=== PATIENT | male | born 1945 | race Caucasian/White ===

== ENCOUNTER 2019-06-17 02:33 | Emergency (ER) | payer MEDICARE, BC ==
[2019-06-17 03:01] VITALS: BP 141/89; PULSE 99
--- NOTE | 2019-06-17 03:23 | EDM.PDOC ---
ED HPI GENERAL MEDICAL PROBLEM - General Chief Complaint: ENT Problem Stated Complaint: SWOLLEN TONGUE,SORE THROAT Time Seen by Provider: 06/17/19 03:00 Source of Information: Reports: Patient History Limitations: Reports: No Limitations - History of Present Illness INITIAL COMMENTS - FREE TEXT/NARRATIVE: 73 yo presents with concerns of sore throat and back pain Was seen in clinic two days ago for ear pain Started on flonase, loratidine. Since this time has developed sore throat too. Feels his tongue may be larger as well. Laid around on the couch today and noticed a back ache while in bed tonight. No fevers. Increased urination. Treatments SALES SPECIAL AGENT: Reports: Other (see below) Other Treatments SALES SPECIAL AGENT: unknown throat Pain Score (Numeric/FACES): 6 Back Pain Pain Score (Numeric/FACES): 8 - Related Data Allergies Allergy/AdvReac Type Severity Reaction Status Date / Time ampicillin Allergy Cannot Verified 06/17/19 03:18 Remember Home Meds: Home Meds Allopurinol 300 mg PO DAILY 03/02/16 [History] Calcipotriene 1 cm TOP BID 03/02/16 [History] Clobetasol Propionate 1 cm TOP BID 03/02/16 [History] Garlic 1 each PO DAILY 03/02/16 [History] Lisinopril 10 mg PO DAILY 03/02/16 [History] Multivitamin [Multi-Vitamin Daily] 1 each PO DAILY 03/02/16 [History] Ibuprofen [Advil] 400 mg PO DAILY 03/04/16 [History] Finasteride 5 mg PO DAILY 06/17/19 [History] Fluticasone Propionate [Flonase] 1 spray NASBOTH DAILY 06/17/19 [History] Levothyroxine 112 mcg PO DAILY 06/17/19 [History] Loratadine 10 mg PO DAILY 06/17/19 [History] atorvaSTATin Calcium [Atorvastatin Calcium] 20 mg PO DAILY 06/17/19 [History] Past Medical History HEENT History: Reports: Impaired Vision Other HEENT History: wears glasses Cardiovascular History: Reports: Hypertension Gastrointestinal History: Reports: GERD Genitourinary History: Reports: Renal Calculus Musculoskeletal History: Reports: Gout, Other (See Below) Other Musculoskeletal History: right torn rotator cuff Endocrine/Metabolic History: Reports: Hypothyroidism, Obesity/BMI 30+ Dermatologic History: Reports: Psoriasis - Infectious Disease History Infectious Disease History: Reports: Chicken Pox - Past Surgical History HEENT Surgical History: Reports: None Cardiovascular Surgical History: Reports: None GI Surgical History: Reports: Colonoscopy Male Surgical History: Reports: None Endocrine Surgical History: Reports: None Musculoskeletal Surgical History: Reports: None Dermatological Surgical History: Reports: None Social & Family History - Family History HEENT: Reports: Glaucoma ED ROS ENT - Review of Systems Review Of Systems: See Below Constitutional: Reports: No Symptoms HEENT: Reports: Throat Pain Respiratory: Reports: No Symptoms Cardiovascular: Reports: No Symptoms Endocrine: Reports: No Symptoms GI/Abdominal: Reports: No Symptoms : Reports: No Symptoms Musculoskeletal: Reports: Back Pain Neurological: Reports: No Symptoms Psychiatric: Reports: No Symptoms Hematologic/Lymphatic: Reports: No Symptoms ED EXAM, ENT - Physical Exam Exam: See Below Exam Limited By: No Limitations General Appearance: Alert, No Apparent Distress Nose: Normal Inspection Mouth/Throat: Normal Inspection Head: Atraumatic, Normocephalic Neck: Normal Inspection Respiratory/Chest: Lungs Clear Cardiovascular: Regular Rate, Rhythm GI/Abdominal: Non-Tender, No Distention Back: Normal Inspection, CVA Tenderness (R) (mild). No: CVA Tenderness (L) Extremities: Normal Inspection Neurological: Alert, Oriented Psychiatric: Normal Affect, Normal Mood Skin: Warm, Dry Course - Vital Signs Last Recorded V/S: Last Vital Signs Temp 35.8 C 06/17/19 02:58 Pulse 99 06/17/19 02:58 Resp 14 06/17/19 02:58 BP 141/89 H 06/17/19 02:58 Pulse Ox 96 06/17/19 02:58 - Orders/Labs/Meds Labs: Laboratory Tests 06/17/19 Range/Units 03:25 Urine Color Yellow (YELLOW) Urine Appearance Clear (CLEAR) Urine pH 6.0 (5.0-8.0) Ur Specific Siler 1.025 (1.008-1.030) Urine Protein Negative (NEGATIVE) mg/dL Urine Glucose (UA) Normal (NEGATIVE) mg/dL Urine Ketones Negative (NEGATIVE) mg/dL Urine Occult Blood Negative (NEGATIVE) Urine Nitrite Negative (NEGATIVE) Urine Bilirubin Negative (NEGATIVE) Urine Urobilinogen 0.2 (0.2-1.0) EU/dL Ur Leukocyte Esterase Negative (NEGATIVE) Urine RBC 0-5 (0-5) Urine WBC 0-5 (0-5) Ur Epithelial Cells Rare Amorphous Sediment Not seen Urine Bacteria Not seen Urine Mucus Few - Re-Assessments/Exams Free Text/Narrative Re-Assessment/Exam: 73 yo presents with concerns of sore throat, back pain. Seen earlier this week in clinic for ear pain. Oropharyngeal exam unremarkable. Symptoms consistent with viral syndrome. No back pain red flags. Will check urine given frequency and possible R CVA tenderness. 06/17/19 03:22 Free Text/Narrative Re-Assessment/Exam: UA negative Safe for discharge 06/17/19 03:50 Departure - Departure Time of Disposition: 03:51 Disposition: Home, Self-Care 01 Clinical Impression: Sore throat Back pain Qualifiers: Back pain location: low back pain Chronicity: acute Back pain laterality: right Sciatica presence: without sciatica Qualified Code(s): M54.5 - Low back pain - Discharge Information Referrals: Carmen Ghotra MD [Primary Care Provider] - Forms: ED Department Discharge Additional Instructions: We suspect your ear/throat/tongue discomfort may be due to a viral infection You may consider discontinuing the allergy medication if they are not helping and seemingly making your symptoms worse Use tylenol and ibuprofen for you back discomfort.
== END 2019-06-17 04:00 | disposition home or self-care (01) ==
LOC: JP.ED 02:33
DX: M54.5 Low back pain (principal); J02.9 Acute pharyngitis, unspecified; I10 Essential (primary) hypertension; K21.9 Gastro-esophageal reflux disease without esophagitis; E03.9 Hypothyroidism, unspecified; Z88.1 Allergy status to other antibiotic agents; Z79.899 Other long term (current) drug therapy; Z87.442 Personal history of urinary calculi
CPT/HCPCS: 81001; 99282; 99283

== ENCOUNTER 2019-06-19 02:27 | Inpatient (IN) | payer MEDICARE, BC ==
--- NOTE | 2019-06-19 02:59 | EDM.PDOC ---
ED HPI GENERAL MEDICAL PROBLEM - General Chief Complaint: Gastrointestinal Problem Stated Complaint: CANNOT HAVE A BOWEL MOVEMENT Time Seen by Provider: 06/19/19 03:17 Source of Information: Reports: Patient - History of Present Illness INITIAL COMMENTS - FREE TEXT/NARRATIVE: 73 years old male patient presented with a chief complaint of constipation. Patient stated that his last bowel movement was almost 1 week ago. Tonight he had some discomfort and has lower abdomen and wasn't able to fall asleep. Denies any nausea or vomiting. Denies any fever. Denies any urinary symptom. Also complaining of some discomfort of his right flank area. Denies any palpitation. Patient pulse was 160 on arrival and EKG shows A. fib with RVR. The patient does not have a history of A. fib. He doesn't feel any palpitation. Denies any chest pain or shortness breath. Patient was seen yesterday and diagnosis was Boss's palsy and prescribed prednisones that he has not started yet for left-sided facial numbness. Denies any headache or visual changes. Denies any focal weakness or numbness anywhere. Had a CT head shows no acute abnormalities. Right Flank Pain Score (Numeric/FACES): 5 - Related Data Allergies Allergy/AdvReac Type Severity Reaction Status Date / Time ampicillin Allergy Cannot Verified 06/19/19 02:41 Remember Home Meds: Home Meds Allopurinol 300 mg PO DAILY 03/02/16 [History] Calcipotriene 1 cm TOP BID 03/02/16 [History] Clobetasol Propionate 1 cm TOP BID 03/02/16 [History] Garlic 1 each PO DAILY 03/02/16 [History] Lisinopril 10 mg PO DAILY 03/02/16 [History] Multivitamin [Multi-Vitamin Daily] 1 each PO DAILY 03/02/16 [History] Ibuprofen [Advil] 400 mg PO DAILY 03/04/16 [History] Finasteride 5 mg PO DAILY 06/17/19 [History] Fluticasone Propionate [Flonase] 1 spray NASBOTH DAILY 06/17/19 [History] Levothyroxine 112 mcg PO DAILY 06/17/19 [History] Loratadine 10 mg PO DAILY 06/17/19 [History] atorvaSTATin Calcium [Atorvastatin Calcium] 20 mg PO BEDTIME 06/17/19 [History] Aspirin [Adult Low Dose Aspirin EC] 81 mg PO DAILY 06/19/19 [History] Tamsulosin HCl [Flomax] 0.4 mg PO DAILY 06/19/19 [History] predniSONE [Prednisone] 4 tab PO DAILY 06/19/19 [History] valACYclovir [Valtrex] 1 tab PO TID 06/19/19 [History] Past Medical History HEENT History: Reports: Impaired Vision Other HEENT History: wears glasses Cardiovascular History: Reports: High Cholesterol, Hypertension Gastrointestinal History: Reports: GERD Genitourinary History: Reports: Renal Calculus Musculoskeletal History: Reports: Gout, Other (See Below) Other Musculoskeletal History: right torn rotator cuff Neurological History: Reports: Other (See Below) Other Neuro History: bells palsey Endocrine/Metabolic History: Reports: Hypothyroidism, Obesity/BMI 30+ Dermatologic History: Reports: Psoriasis - Infectious Disease History Infectious Disease History: Reports: Chicken Pox - Past Surgical History HEENT Surgical History: Reports: None Cardiovascular Surgical History: Reports: None GI Surgical History: Reports: Colonoscopy Male Surgical History: Reports: None Endocrine Surgical History: Reports: None Musculoskeletal Surgical History: Reports: None Dermatological Surgical History: Reports: None Social & Family History - Family History HEENT: Reports: Glaucoma - Tobacco Use Smoking Status *Q: Never Smoker - Caffeine Use Caffeine Use: Reports: Coffee - Recreational Drug Use Recreational Drug Use: No ED ROS GENERAL - Review of Systems Review Of Systems: ROS reveals no pertinent complaints other than HPI. ED EXAM, GI/ABD - Physical Exam Exam: See Below Exam Limited By: No Limitations General Appearance: Alert, WD/WN, No Apparent Distress Eyes: Bilateral: Normal Appearance, EOMI Ears: Normal External Exam, Normal Canal, Hearing Grossly Normal, Normal TMs Nose: Normal Inspection, Normal Mucosa, No Blood Throat/Mouth: Normal Inspection, Normal Lips, Normal Teeth, Normal Gums, Normal Oropharynx, Normal Voice, No Airway Compromise Head: Atraumatic, Normocephalic Neck: Normal Inspection, Supple, Non-Tender, Full Range of Motion Respiratory/Chest: No Respiratory Distress, Lungs Clear, Normal Breath Sounds, No Accessory Muscle Use, Chest Non-Tender Cardiovascular: Tachycardia, Irregularly Irregular GI/Abdominal Exam: Normal Bowel Sounds, No Distention, Tender, Other (Diffuse mild abdominal tenderness.) Back Exam: Normal Inspection, Full Range of Motion, NT Extremities: Normal Inspection, Normal Range of Motion, Non-Tender, Normal Capillary Refill, No Pedal Edema Neurological: Alert, Oriented, CN II-XII Intact, Normal Cognition, Normal Gait, Normal Reflexes, No Motor/Sensory Deficits Psychiatric: Normal Affect, Normal Mood Skin Exam: Warm, Dry, Intact, Normal Color, No Rash Course - Vital Signs Last Recorded V/S: Last Vital Signs Temp 36.4 C 06/19/19 02:43 Pulse 118 H 06/19/19 04:46 Resp 20 06/19/19 04:46 BP 122/65 06/19/19 04:46 Pulse Ox 95 06/19/19 04:46 - Orders/Labs/Meds Orders: Active Orders 24 hr Category Date Time Status Cardiac Monitoring [RC] .As Directed Care 06/19/19 03:01 Active EKG Documentation Completion [RC] ASDIRECTED Care 06/19/19 03:04 Active Diltiazem 125 mg Med 06/19/19 03:45 Active Sodium Chloride 0.9% [Normal Saline] 100 ml IV TITRATE EKG 12 Lead [EK] Stat Ther 06/19/19 03:02 Ordered Medication Orders Diltiazem HCl 125 mg/ Sodium (Chloride) 125 mls @ 5 mls/hr IV TITRATE OSITO; Protocol Last Titration: 06/19/19 04:34 Dose: 10 mg/hr, 10 mls/hr Admin: 06/19/19 03:42 Dose: 5 mg/hr, 5 mls/hr Labs: Laboratory Tests 06/19/19 06/19/19 06/19/19 Range/Units 03:01 03:01 03:01 WBC 22.5 H (4.5-11.0) K/uL RBC 4.36 (4.30-5.90) M/uL Hgb 13.5 (12.0-15.0) g/dL Hct 39.8 L (40.0-54.0) % MCV 91 (80-98) fL MCH 31 (27-31) pg MCHC 34 (32-36) % Plt Count 464 H (150-400) K/uL Neut % (Auto) 82 H (36-66) % Lymph % (Auto) 11 L (24-44) % Luna % (Auto) 6 (2-6) % Eos % (Auto) 0 L (2-4) % Baso % (Auto) 0 (0-1) % PT 10.4 (9.5-12.0) sec INR 0.96 (0.80-1.20) D-Dimer, Quantitative (0.0-400.0) ng/mL Sodium 130 L (140-148) mmol/L Potassium 4.6 (3.6-5.2) mmol/L Chloride 96 L (100-108) mmol/L Carbon Dioxide 29 (21-32) mmol/L Anion Gap 9.6 (5.0-14.0) mmol/L BUN 20 H (7-18) mg/dL Creatinine 1.3 (0.8-1.3) mg/dL Est Cr Clr Drug Dosing 50.61 mL/min Estimated GFR (MDRD) 54 L (>60) Glucose 152 H (74-106) mg/dL Calcium 9.3 (8.5-10.1) mg/dL Troponin I 0.018 (0.000-0.056) ng/mL NT-Pro-B Natriuret Pep 1186 H (5-125) pg/mL TSH, Ultra Sensitive (0.358-3.740) uIU/mL Urine Color (YELLOW) Urine Appearance (CLEAR) Urine pH (5.0-8.0) Ur Specific Eleanor (1.008-1.030) Urine Protein (NEGATIVE) mg/dL Urine Glucose (UA) (NEGATIVE) mg/dL Urine Ketones (NEGATIVE) mg/dL Urine Occult Blood (NEGATIVE) Urine Nitrite (NEGATIVE) Urine Bilirubin (NEGATIVE) Urine Urobilinogen (0.2-1.0) EU/dL Ur Leukocyte Esterase (NEGATIVE) Urine RBC (0-5) Urine WBC (0-5) Ur Epithelial Cells Amorphous Sediment Urine Bacteria Urine Mucus Urine Other 06/19/19 06/19/19 06/19/19 Range/Units 03:10 03:16 04:29 WBC (4.5-11.0) K/uL RBC (4.30-5.90) M/uL Hgb (12.0-15.0) g/dL Hct (40.0-54.0) % MCV (80-98) fL MCH (27-31) pg MCHC (32-36) % Plt Count (150-400) K/uL Neut % (Auto) (36-66) % Lymph % (Auto) (24-44) % Luna % (Auto) (2-6) % Eos % (Auto) (2-4) % Baso % (Auto) (0-1) % PT (9.5-12.0) sec INR (0.80-1.20) D-Dimer, Quantitative 161 (0.0-400.0) ng/mL Sodium (140-148) mmol/L Potassium (3.6-5.2) mmol/L Chloride (100-108) mmol/L Carbon Dioxide (21-32) mmol/L Anion Gap (5.0-14.0) mmol/L BUN (7-18) mg/dL Creatinine (0.8-1.3) mg/dL Est Cr Clr Drug Dosing mL/min Estimated GFR (MDRD) (>60) Glucose (74-106) mg/dL Calcium (8.5-10.1) mg/dL Troponin I (0.000-0.056) ng/mL NT-Pro-B Natriuret Pep (5-125) pg/mL TSH, Ultra Sensitive 3.513 (0.358-3.740) uIU/mL Urine Color Yellow (YELLOW) Urine Appearance Clear (CLEAR) Urine pH 7.0 (5.0-8.0) Ur Specific Eleanor 1.020 (1.008-1.030) Urine Protein Trace H (NEGATIVE) mg/dL Urine Glucose (UA) Normal (NEGATIVE) mg/dL Urine Ketones Negative (NEGATIVE) mg/dL Urine Occult Blood Negative (NEGATIVE) Urine Nitrite Negative (NEGATIVE) Urine Bilirubin Negative (NEGATIVE) Urine Urobilinogen Normal (0.2-1.0) EU/dL Ur Leukocyte Esterase Negative (NEGATIVE) Urine RBC 0-5 (0-5) Urine WBC 0-5 (0-5) Ur Epithelial Cells Rare Amorphous Sediment Numerous Urine Bacteria Rare Urine Mucus Moderate Urine Other See note Meds: Medications Generic Name Dose Route Start Last Admin Trade Name Freq PRN Reason Stop Dose Admin Diltiazem HCl 125 mg/ Sodium 125 mls @ 5 mls/hr 06/19/19 03:45 06/19/19 04:34 Chloride IV 10 mg/hr TITRATE OSITO 10 mls/hr Titration Protocol 5 MG/HR Discontinued Medications Generic Name Dose Route Start Last Admin Trade Name Freq PRN Reason Stop Dose Admin Diltiazem HCl 20 mg 08/13/19 03:06 06/19/19 03:22 Diltiazem IVPUSH 06/19/19 03:07 20 mg ONETIME ONE Administration Diltiazem HCl Confirm 06/19/19 03:37 06/19/19 03:46 Diltiazem Administered 06/19/19 03:38 Not Given Dose 125 mg .ROUTE .STK-MED ONE Sodium Chloride 1,000 mls @ 999 mls/hr 06/19/19 03:09 06/19/19 03:22 Normal Saline IV 06/19/19 04:09 999 mls/hr .BOLUS STA Administration Sodium Chloride Confirm 06/19/19 03:37 06/19/19 03:46 Normal Saline Administered 06/19/19 03:38 Not Given Dose 100 mls @ as directed .ROUTE .STK-MED ONE Ondansetron HCl 4 mg 06/19/19 03:31 06/19/19 03:37 Zofran IVPUSH 06/19/19 03:32 4 mg ONETIME ONE Administration - Radiology Interpretation Free Text/Narrative:: + - Re-Assessments/Exams Free Text/Narrative Re-Assessment/Exam: 06/19/19 05:09 Patient was seen and examined immediately on arrival. Stable on ekg monitor. EKG shows A. fib with RVR. Was given 20 mg IV Cardizem bolus. Heart rate slowed down to 80s then went back up to 120. Started on Cardizem drip. Lab and imaging reviewed with the patient. Chest x-ray and abdominal x-ray did not show any acute abnormalities except for increased amount of stool. No free air. Elevated white count with left shift. Possible emargination however the patient possibly would need a CT abdomen and pelvis to rule out any other pathology whenever he is stable for a CT. I think he also would benefit from MRI of the brain to rule out stroke since he was diagnosed with Boss's palsy yesterday, and is setting of new diagnosis of A. fib with RVR . Urine shows no sign of infection. Also no blood to suggest nephrolithiasis. Patient is afebrile. D- dimer is negative. Normal troponin. 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 Patient agrees with the plan. Stable for admission. 06/19/19 05:15 Departure - Departure Time of Disposition: 05:13 Disposition: Admitted As Inpatient 66 Condition: Good Clinical Impression: Atrial fibrillation with RVR, Constipation, Leukocytosis - Discharge Information Referrals: Carmen Ghotra MD [Primary Care Provider] - Forms: ED Department Discharge - My Orders Last 24 Hours: My Active Orders 06/19/19 03:01 Cardiac Monitoring [RC] .As Directed 06/19/19 03:02 EKG 12 Lead [EK] Stat 06/19/19 03:04 EKG Documentation Completion [RC] ASDIRECTED 06/19/19 03:45 Diltiazem 125 mg Sodium Chloride 0.9% [Normal Saline] 100 ml IV TITRATE - Assessment/Plan Last 24 Hours: My Active Orders 06/19/19 03:01 Cardiac Monitoring [RC] .As Directed 06/19/19 03:02 EKG 12 Lead [EK] Stat 06/19/19 03:04 EKG Documentation Completion [RC] ASDIRECTED 06/19/19 03:45 Diltiazem 125 mg Sodium Chloride 0.9% [Normal Saline] 100 ml IV TITRATE Plan: Admission to Dr. Biggs
[2019-06-19] MEDS ORDERED: Diltiazem 25 MG/5 ML SDV IVPUSH ONE (03:06)
[2019-06-19] MEDS ORDERED: Sodium Chloride 0.9% 1,000 ML IV STA (03:09)
[2019-06-19] MEDS ORDERED: Ondansetron 4 MG/2 ML SDV IVPUSH ONE (03:31)
[2019-06-19] MEDS ORDERED: Diltiazem 125 MG/25 ML SDV ONE (03:37)
[2019-06-19] MEDS ORDERED: Sodium Chloride 0.9% 100 ML ONE (03:37)
[2019-06-19] MEDS: Diltiazem 125 MG in Sodium Chloride 0.9% 100 ML IV SCH ×2 (03:42→11:14)
--- NOTE | 2019-06-19 04:15 | CRLCR ---
Indication: Chest pain Technique: Chest 1 view Comparison: None Findings/Impression: Cardiovascular and mediastinum: Heart size and vasculature are normal in caliber and appearance. Mediastinum is within normal limits. Lungs and pleural space: Lungs are clear. No sign of infiltrate or mass. No sign of pleural effusion. No pneumothorax. Bones and soft tissues: No significant findings. Dictated by Susan Craig MD @ Jun 19 2019 4:14AM Signed by Dr. Susan Craig @ Jun 19 2019 4:14AM
--- NOTE | 2019-06-19 04:18 | CRLCR ---
Indication: Constipation Technique: KUB 2 view Comparison: None Findings/Impression: : Large amount of feces in the colon. Air-filled, minimally dilated loops of transverse colon. No free air or pneumatosis. No acute osseous abnormality. Dictated by Susan Craig MD @ Jun 19 2019 4:14AM Signed by Dr. Susan Craig @ Jun 19 2019 4:15AM
--- NOTE | 2019-06-19 05:27 | PCM.HP ---
H&P History of Present Illness - General Date of Service: 06/19/19 Source of Information: Patient History Limitations: Reports: No Limitations - History of Present Illness Initial Comments - Free Text/Narative: 73-year-old male with past medical history of hypertension, hyperlipidemia, hypothyroidism, obstructive uropathy, psoriasis, gout came to the ED with a concerns of abdominal pain and constipation. Patient last bowel movement was 1 week prior to the ER visit. Patient had appointment with primary care physician with the concerns of left facial droop and diagnosed with facial paralysis and prescribed prednisone medication. Patient is compliant with the medication. Patient reports that he noticed facial droop associated with difficulty in speech. Patient came to ED yesterday at that time patient CT head did not show any signs of hemorrhage, infarction. Patient denies any vomitings but complaining of nausea. Denies any recent fever in the last 1 week. Denies any recent tick bites. Patient complaining of intermittent abdominal pain right lower quadrant area. Patient recent TSH levels are elevated patient increased his levothyroxine dose since last 2 weeks.. In the ED patient has atrial fibrillation and RVR patient received loading dose of diltiazem and patient lab results showed elevated WBC with 22.0. Patient is a full code. Other review of systems are not significant. Right Flank Pain Score (Numeric/FACES): 5 Abdominal Pain Score (Numeric/FACES): 4 - Related Data Allergies/Adverse Reactions: Allergies Allergy/AdvReac Type Severity Reaction Status Date / Time ampicillin Allergy Cannot Verified 06/19/19 02:41 Remember Home Medications: Home Meds Allopurinol 300 mg PO DAILY 03/02/16 [History] Calcipotriene 1 cm TOP BID 03/02/16 [History] Clobetasol Propionate 1 cm TOP BID 03/02/16 [History] Garlic 1 each PO DAILY 03/02/16 [History] Lisinopril 10 mg PO DAILY 03/02/16 [History] Multivitamin [Multi-Vitamin Daily] 1 each PO DAILY 03/02/16 [History] Ibuprofen [Advil] 400 mg PO DAILY 03/04/16 [History] Finasteride 5 mg PO DAILY 06/17/19 [History] Fluticasone Propionate [Flonase] 1 spray NASBOTH DAILY 06/17/19 [History] Levothyroxine 112 mcg PO DAILY 06/17/19 [History] Loratadine 10 mg PO DAILY 06/17/19 [History] atorvaSTATin Calcium [Atorvastatin Calcium] 20 mg PO BEDTIME 06/17/19 [History] Aspirin [Adult Low Dose Aspirin EC] 81 mg PO DAILY 06/19/19 [History] Tamsulosin HCl [Flomax] 0.4 mg PO DAILY 06/19/19 [History] predniSONE [Prednisone] 4 tab PO DAILY 06/19/19 [History] valACYclovir [Valtrex] 1 tab PO TID 06/19/19 [History] Past Medical History HEENT History: Reports: Impaired Vision Other HEENT History: wears glasses Cardiovascular History: Reports: High Cholesterol, Hypertension Gastrointestinal History: Reports: GERD Genitourinary History: Reports: Renal Calculus Musculoskeletal History: Reports: Gout, Other (See Below) Other Musculoskeletal History: right torn rotator cuff Neurological History: Reports: Other (See Below) Other Neuro History: bells palsey Endocrine/Metabolic History: Reports: Hypothyroidism, Obesity/BMI 30+ Dermatologic History: Reports: Psoriasis - Infectious Disease History Infectious Disease History: Reports: Chicken Pox - Past Surgical History HEENT Surgical History: Reports: None Cardiovascular Surgical History: Reports: None GI Surgical History: Reports: Colonoscopy Male Surgical History: Reports: None Endocrine Surgical History: Reports: None Musculoskeletal Surgical History: Reports: None Dermatological Surgical History: Reports: None Social & Family History - Family History Family Medical History: Noncontributory HEENT: Reports: Glaucoma - Tobacco Use Smoking Status *Q: Never Smoker - Caffeine Use Caffeine Use: Reports: Coffee - Recreational Drug Use Recreational Drug Use: No H&P Review of Systems - Review of Systems: Review Of Systems: See Below General: Reports: Malaise, Weakness. Denies: Fever, Chills Pulmonary: Denies: Shortness of Breath, Wheezing, Pleuritic Chest Pain, Cough, Sputum Cardiovascular: Denies: Chest Pain, Palpitations, Dyspnea on Exertion, Orthopnea , PND Gastrointestinal: Reports: Abdominal Pain, Constipation, Decreased Appetite, Distension, Nausea. Denies: Black Stool, Bloody Stool, Flatus, Hematemesis, Vomiting Genitourinary: Denies: Dysuria, Frequency Psychiatric: Denies: Confusion, Depression, Mood Lability Neurological: Denies: Confusion, Dizziness Hematologic/Lymphatic: Denies: Anemia, Easy Bleeding Exam - Exam Exam: See Below - Vital Signs Vital Signs: Last Vital Signs Temp 36.4 C 06/19/19 02:43 Pulse 118 H 06/19/19 04:46 Resp 20 06/19/19 04:46 BP 122/65 06/19/19 04:46 Pulse Ox 95 06/19/19 04:46 Weight: 98.8 kg - Exam General: Alert, Oriented Neck: Supple, Trachea Midline Lungs: Clear to Auscultation, Normal Respiratory Effort Cardiovascular: Irregular Rhythm. No: Regular Rate, Regular Rhythm GI/Abdominal Exam: Normal Bowel Sounds, Distended, Tender. No: Non-Tender, Guarding, Rigid, Rebound Back Exam: Normal Inspection, Full Range of Motion Extremities: Normal Inspection, Normal Range of Motion Skin: Warm, Dry, Intact Neurological: Cranial Nerves Intact, Reflexes Equal Bilateral Neuro Extensive - Mental Status: Alert, Oriented x3 Neuro Extensive - Motor, Sensory, Reflexes: CN II-XII Intact, Normal Reflexes Psychiatric: Alert, Normal Affect, Normal Mood - Patient Data Lab Results Last 24 hrs: Laboratory Results - last 24 hr 06/19/19 06/19/19 06/19/19 Range/Units 03:01 03:01 03:01 WBC 22.5 H (4.5-11.0) K/uL RBC 4.36 (4.30-5.90) M/uL Hgb 13.5 (12.0-15.0) g/dL Hct 39.8 L (40.0-54.0) % MCV 91 (80-98) fL MCH 31 (27-31) pg MCHC 34 (32-36) % Plt Count 464 H (150-400) K/uL Neut % (Auto) 82 H (36-66) % Lymph % (Auto) 11 L (24-44) % [place] % (Auto) 6 (2-6) % Eos % (Auto) 0 L (2-4) % Baso % (Auto) 0 (0-1) % PT 10.4 (9.5-12.0) sec INR 0.96 (0.80-1.20) D-Dimer, Quantitative (0.0-400.0) ng/mL Sodium 130 L (140-148) mmol/L Potassium 4.6 (3.6-5.2) mmol/L Chloride 96 L (100-108) mmol/L Carbon Dioxide 29 (21-32) mmol/L Anion Gap 9.6 (5.0-14.0) mmol/L BUN 20 H (7-18) mg/dL Creatinine 1.3 (0.8-1.3) mg/dL Est Cr Clr Drug Dosing 50.61 mL/min Estimated GFR (MDRD) 54 L (>60) Glucose 152 H (74-106) mg/dL Calcium 9.3 (8.5-10.1) mg/dL Troponin I 0.018 (0.000-0.056) ng/mL NT-Pro-B Natriuret Pep 1186 H (5-125) pg/mL TSH, Ultra Sensitive (0.358-3.740) uIU/mL Urine Color (YELLOW) Urine Appearance (CLEAR) Urine pH (5.0-8.0) Ur Specific [place] (1.008-1.030) Urine Protein (NEGATIVE) mg/dL Urine Glucose (UA) (NEGATIVE) mg/dL Urine Ketones (NEGATIVE) mg/dL Urine Occult Blood (NEGATIVE) Urine Nitrite (NEGATIVE) Urine Bilirubin (NEGATIVE) Urine Urobilinogen (0.2-1.0) EU/dL Ur Leukocyte Esterase (NEGATIVE) Urine RBC (0-5) Urine WBC (0-5) Ur Epithelial Cells Amorphous Sediment Urine Bacteria Urine Mucus Urine Other 06/19/19 06/19/19 06/19/19 Range/Units 03:10 03:16 04:29 WBC (4.5-11.0) K/uL RBC (4.30-5.90) M/uL Hgb (12.0-15.0) g/dL Hct (40.0-54.0) % MCV (80-98) fL MCH (27-31) pg MCHC (32-36) % Plt Count (150-400) K/uL Neut % (Auto) (36-66) % Lymph % (Auto) (24-44) % [place] % (Auto) (2-6) % Eos % (Auto) (2-4) % Baso % (Auto) (0-1) % PT (9.5-12.0) sec INR (0.80-1.20) D-Dimer, Quantitative 161 (0.0-400.0) ng/mL Sodium (140-148) mmol/L Potassium (3.6-5.2) mmol/L Chloride (100-108) mmol/L Carbon Dioxide (21-32) mmol/L Anion Gap (5.0-14.0) mmol/L BUN (7-18) mg/dL Creatinine (0.8-1.3) mg/dL Est Cr Clr Drug Dosing mL/min Estimated GFR (MDRD) (>60) Glucose (74-106) mg/dL Calcium (8.5-10.1) mg/dL Troponin I (0.000-0.056) ng/mL NT-Pro-B Natriuret Pep (5-125) pg/mL TSH, Ultra Sensitive 3.513 (0.358-3.740) uIU/mL Urine Color Yellow (YELLOW) Urine Appearance Clear (CLEAR) Urine pH 7.0 (5.0-8.0) Ur Specific [place] 1.020 (1.008-1.030) Urine Protein Trace H (NEGATIVE) mg/dL Urine Glucose (UA) Normal (NEGATIVE) mg/dL Urine Ketones Negative (NEGATIVE) mg/dL Urine Occult Blood Negative (NEGATIVE) Urine Nitrite Negative (NEGATIVE) Urine Bilirubin Negative (NEGATIVE) Urine Urobilinogen Normal (0.2-1.0) EU/dL Ur Leukocyte Esterase Negative (NEGATIVE) Urine RBC 0-5 (0-5) Urine WBC 0-5 (0-5) Ur Epithelial Cells Rare Amorphous Sediment Numerous Urine Bacteria Rare Urine Mucus Moderate Urine Other See note Result Diagrams: 06/20/19 04:00 06/20/19 04:00 - Problem List (1) BPH (benign prostatic hyperplasia) SNOMED Code(s): 189535862 ICD Code: N40.0 - BENIGN PROSTATIC HYPERPLASIA WITHOUT LOWER URINRY TRACT SYMP Status: Acute Current Visit: Yes (2) Hypertension SNOMED Code(s): 56505075 ICD Code: I10 - ESSENTIAL (PRIMARY) HYPERTENSION Status: Acute Current Visit: Yes (3) Hyperlipidemia SNOMED Code(s): 13704167 ICD Code: E78.5 - HYPERLIPIDEMIA, UNSPECIFIED Status: Acute Current Visit : Yes (4) Hypothyroid SNOMED Code(s): 19493038 ICD Code: E03.9 - HYPOTHYROIDISM, UNSPECIFIED Status: Acute Current Visit : Yes (5) Psoriasis SNOMED Code(s): 9422340 ICD Code: L40.9 - PSORIASIS, UNSPECIFIED Status: Acute Current Visit: Yes (6) Gout SNOMED Code(s): 38709948 ICD Code: M10.9 - GOUT, UNSPECIFIED Status: Acute Current Visit: Yes (7) Atrial fibrillation with RVR SNOMED Code(s): 304708797741768 ICD Code: I48.91 - UNSPECIFIED ATRIAL FIBRILLATION Status: Acute Current Visit: Yes (8) Constipation SNOMED Code(s): 33867683 ICD Code: K59.00 - CONSTIPATION, UNSPECIFIED Status: Acute Current Visit : Yes (9) Leukocytosis SNOMED Code(s): 796611208, 255290682 ICD Code: D72.829 - ELEVATED WHITE BLOOD CELL COUNT, UNSPECIFIED Status: Acute Current Visit: Yes (10) Back pain SNOMED Code(s): 430412041 ICD Code: M54.9 - DORSALGIA, UNSPECIFIED Status: Acute Current Visit: No Qualifiers: Back pain location: low back pain Chronicity: acute Back pain laterality : right Sciatica presence: without sciatica Qualified Code(s): M54.5 - Low back pain (11) Sore throat SNOMED Code(s): 400296527 ICD Code: J02.9 - ACUTE PHARYNGITIS, UNSPECIFIED Status: Acute Current Visit: No (12) Essential hypertension SNOMED Code(s): 61686219 ICD Code: I10 - ESSENTIAL (PRIMARY) HYPERTENSION Status: Chronic Current Visit: No Problem List Initiated/Reviewed/Updated: Yes Orders Last 24hrs: Active Orders 24 hr Category Date Time Status Cardiac Monitoring [RC] .As Directed Care 06/19/19 03:01 Active EKG Documentation Completion [RC] ASDIRECTED Care 06/19/19 03:04 Active Diltiazem 125 mg Med 06/19/19 03:45 Active Sodium Chloride 0.9% [Normal Saline] 100 ml IV TITRATE EKG 12 Lead [EK] Stat Ther 06/19/19 03:02 Ordered Medication Orders Diltiazem HCl 125 mg/ Sodium (Chloride) 125 mls @ 5 mls/hr IV TITRATE [facility]; Protocol Last Titration: 06/19/19 04:34 Dose: 10 mg/hr, 10 mls/hr Admin: 06/19/19 03:42 Dose: 5 mg/hr, 5 mls/hr Assessment/Plan Comment:: 73-year-old male with past medical history of hypertension, hyperlipidemia, hypothyroidism, obstructive uropathy, psoriasis, gout came to the ED with a concerns of abdominal pain and constipation. Patient admitted in the hospital in inpatient status with the concerns of atrial fibrillation and RVR associated with abdominal appendicular mucocele. Patient WBCs showed a 22.0 Patient EKG showed atrial fibrillation with RVR Patient is responding to diltiazem infusion We will continue the same we will titrate accordingly Patient lactic acid is within normal limit, TSH is within normal limit No neurological deficit is noted in bilateral lower and upper extremities Patient CT abdomen pelvis showed appendicular mucocele without any intestinal obstruction We will consult surgery for further management We will start empirical antibiotic with Rocephin and will follow blood and urine culture CBC, CMP tomorrow DVT prophylaxis hold for now until further surgery team recommendations Diet n.p.o. for now IV fluids normal saline with 150 mL/h CODE STATUS full code Inpatient status
[2019-06-19] MEDS ORDERED: Morphine 2 MG/ML Syringe IVPUSH PRN (05:45)
[2019-06-19] MEDS ORDERED: Sodium Chloride 0.9% 10 ML Syringe FLUSH ONE (05:55)
[2019-06-19] MEDS ORDERED: Iopamidol 612 MG/ML 150 ML Bottle IV ONE (06:00)
[2019-06-19] MEDS ORDERED: Heparin Sodium 5,000 Units/ML Vial SUBCUT SCH (06:00)
[2019-06-19] MEDS ORDERED: Heparin Sodium/D5W 25,000 UNITS/500 ML BAG IV SCH ×2 (06:15→06:45)
[2019-06-19] MEDS ORDERED: cefTRIAXone 2 GM in Sodium Chloride 0.9% 50 ML IV SCH (06:30)
[2019-06-19] MEDS ORDERED: Heparin Sodium 5,000 Units/ML Vial IVPUSH ONE (06:34)
--- NOTE | 2019-06-19 07:28 | CRLCT ---
INDICATION: Abdominal pain. COMPARISON: None. TECHNIQUE: CT of the abdomen and pelvis with contrast. FINDINGS: Mild bibasilar dependent atelectasis. Focal hypoattenuation adjacent to the fissure for the falciform ligament is likely due to focal hepatic steatosis. The gallbladder, pancreas, spleen and adrenal glands are unremarkable. Kidneys enhance symmetrically. No obstructing renal calculus or hydronephrosis. Subcentimeter renal hypoattenuating lesions are too small to characterize. Urinary bladder is unremarkable. Prostate is enlarged. No free fluid or free air. The markedly dilated fluid attenuating appendix, suspicious for a mucocele measuring up to 4 cm in diameter (series 2 images 66 through 97). No significant adjacent fat stranding. No evidence of small-bowel obstruction. No lymphadenopathy in the abdomen or pelvis. Degenerative changes in the spine with partial ankylosis of L2 and L3. IMPRESSION: 1. Markedly dilated, fluid attenuation appendix which is highly suspicious for a mucocele. Recommend consultation with surgery. Please note that all CT scans at this facility use dose modulation, iterative reconstruction, and/or weight-based dosing when appropriate to reduce radiation dose to as low as reasonably achievable. Dictated by Ebenezer Cuevas MD @ Jun 19 2019 7:18AM Signed by Dr. Ebenezer Cuevas @ Jun 19 2019 7:26AM
[2019-06-19] MEDS ORDERED: Neostigmine Methylsulfate 1 MG/ML 5 ML Syringe ONE (08:49)
[2019-06-19] MEDS ORDERED: Propofol 200 MG/20 ML SDV ONE (08:49)
[2019-06-19] MEDS ORDERED: Dexamethasone 4 MG/ML SDV ONE (08:49)
[2019-06-19] MEDS ORDERED: Glycopyrrolate 0.2 MG/ML 5 ML MDV ONE (08:49)
[2019-06-19] MEDS ORDERED: fentaNYL 250 MCG/5 ML SDV ONE (08:49)
[2019-06-19] MEDS ORDERED: Succinylcholine 200 MG/10 ML MDV ONE (08:49)
[2019-06-19] MEDS ORDERED: Rocuronium 50 MG/5 ML Vial ONE (08:49)
[2019-06-19] MEDS ORDERED: Ondansetron 4 MG/2 ML SDV ONE (08:49)
[2019-06-19] MEDS ORDERED: Magnesium Sulfate/Water 2 GM in Premix Bag 1 BAG IV ONE (09:00)
[2019-06-19] MEDS ORDERED: Meropenem 500 MG SDV ONE (10:02)
[2019-06-19] MEDS ORDERED: Bupivacaine 0.5%/EPINEPHrine 1:200,000 50 ML MDV ONE (10:03)
[2019-06-19] MEDS ORDERED: HYDROmorphone/Normal Saline 15 MG/30 ML PCA IV PRN (10:08)
[2019-06-19] MEDS ORDERED: Naloxone 0.4 MG/ML SDV IV PRN (10:08)
[2019-06-19] MEDS ORDERED: Ketamine 50 MG in Sodium Chloride 0.9% 49.5 ML IV SCH (11:00)
[2019-06-19] MEDS ORDERED: Ketamine 500 MG/5 ML MDV IV SCH (11:00)
[2019-06-19] MEDS: Meropenem 500 MG in Sodium Chloride 0.9% 50 ML IV ONE ×2 (11:14→14:07)
[2019-06-19] MEDS ORDERED: ePHEDrine 50 MG/ML SDV ONE (12:51)
[2019-06-19] MEDS ORDERED: valACYclovir 1,000 MG Tab PO SCH (14:00)
[2019-06-19] MEDS ORDERED: hydrOXYzine HCl 100 MG/2 ML SDV IM PRN (14:21)
[2019-06-19] MEDS ORDERED: Cyclobenzaprine 10 MG Tab PO PRN (14:21)
[2019-06-19] MEDS ORDERED: Diltiazem 125 MG in Sodium Chloride 0.9% 100 ML IV SCH (14:30)
[2019-06-19] MEDS: valACYclovir 1,000 MG Tab PO SCH ×2 (16:09→21:05)
[2019-06-19] MEDS: Pantoprazole 40 MG Vial IV SCH (16:09)
[2019-06-19] MEDS: Meropenem 500 MG in Sodium Chloride 0.9% 50 ML IV SCH ×2 (17:55→22:31)
[2019-06-19] MEDS: Dextrose 5%-Lactated Ringers 1,000 ML IV SCH (19:35)
[2019-06-19] MEDS: atorvaSTATin 20 MG Tab PO SCH (21:05)
[2019-06-20] MEDS: Dextrose 5%-Lactated Ringers 1,000 ML IV SCH ×3 (01:09→15:06)
[2019-06-20] MEDS: Meropenem 500 MG in Sodium Chloride 0.9% 50 ML IV SCH ×4 (04:44→23:00)
[2019-06-20] MEDS: Levothyroxine 112 MCG Tab PO SCH (08:11)
[2019-06-20] MEDS: Acetaminophen 500 MG Tab PO SCH ×3 (08:13→21:01)
[2019-06-20] MEDS ORDERED: Tamsulosin 0.4 MG Cap.ER PO SCH (09:00)
[2019-06-20] MEDS ORDERED: Aspirin 81 MG Tab.EC PO SCH (09:00)
--- NOTE | 2019-06-20 09:09 | PCM.PN ---
- General Info Date of Service: 06/20/19 Subjective Update: There were no acute events overnight. Yesterday the patient underwent an exploratory laparotomy and had a right hemicolectomy for surgical management for a very large mucocele. He converted to sinus rhythm during the procedure. He has remained in sinus rhythm overnight. He reports moderate pain which is fairly well controlled as long as he is not moving around too much. No complaints of nausea. No shortness of breath. Functional Status: Reports: Pain Controlled - Review of Systems General: Denies: Fever Gastrointestinal: Reports: Abdominal Pain - Patient Data Vitals - Most Recent: Last Vital Signs Temp 36.1 C 06/20/19 04:00 Pulse 78 06/19/19 18:00 Resp 13 06/20/19 04:00 BP 128/58 L 06/20/19 06:00 Pulse Ox 95 06/20/19 04:00 Weight - Most Recent: 98.8 kg I&O - Last 24 Hours: Intake & Output 06/19/19 06/20/19 06/20/19 22:59 06:59 14:59 Intake Total 998 2435 Output Total 1030 1170 Balance -32 1265 Lab Results Last 24 Hours: Laboratory Results - last 24 hr 06/20/19 06/20/19 Range/Units 04:00 04:00 WBC 25.0 H (4.5-11.0) K/uL RBC 3.61 L (4.30-5.90) M/uL Hgb 11.0 L D (12.0-15.0) g/dL Hct 33.8 L (40.0-54.0) % MCV 94 (80-98) fL MCH 31 (27-31) pg MCHC 33 (32-36) % Plt Count 353 (150-400) K/uL Neut % (Auto) 92 H (36-66) % Lymph % (Auto) 6 L (24-44) % [place] % (Auto) 2 (2-6) % Eos % (Auto) 0 L (2-4) % Baso % (Auto) 0 (0-1) % Sodium 135 L (140-148) mmol/L Potassium 4.8 (3.6-5.2) mmol/L Chloride 102 (100-108) mmol/L Carbon Dioxide 27 (21-32) mmol/L Anion Gap 10.8 (5.0-14.0) mmol/L BUN 18 (7-18) mg/dL Creatinine 1.4 H (0.8-1.3) mg/dL Est Cr Clr Drug Dosing 46.84 mL/min Estimated GFR (MDRD) 50 L (>60) Glucose 173 H (74-106) mg/dL Calcium 8.6 (8.5-10.1) mg/dL Phosphorus 3.3 (2.5-4.9) mg/dL Magnesium 1.9 (1.8-2.4) mg/dL Total Bilirubin 0.3 (0.2-1.0) mg/dL AST 29 (15-37) U/L ALT 50 (12-78) U/L Alkaline Phosphatase 86 (46-116) U/L NT-Pro-B Natriuret Pep 1475 H (5-125) pg/mL Total Protein 6.1 L (6.4-8.2) g/dL Albumin 2.4 L (3.4-5.0) g/dL Globulin 3.7 H (2.3-3.5) g/dL Albumin/Globulin Ratio 0.7 L (1.2-2.2) TSH, Ultra Sensitive 1.625 (0.358-3.740) uIU/mL Jamal Results Last 24 Hours: Microbiology 06/19/19 06:25 Aerobic Blood Culture - Preliminary Blood - Venous - Lab Draw NO GROWTH AFTER 1 DAY Anaerobic Blood Culture - Preliminary NO GROWTH AFTER 1 DAY 06/19/19 06:25 Aerobic Blood Culture - Preliminary Blood - Venous NO GROWTH AFTER 1 DAY Anaerobic Blood Culture - Preliminary NO GROWTH AFTER 1 DAY Med Orders - Current: Current Medications Acetaminophen (Tylenol Extra Strength) 1,000 mg PO Q6H [facility] Last Admin: 06/20/19 08:13 Dose: 1,000 mg Allopurinol (Zyloprim) 300 mg PO DAILY [facility] Aspirin (Halfprin) 81 mg PO DAILY [facility] Atorvastatin Calcium (Lipitor) 20 mg PO BEDTIME [facility] Last Admin: 06/19/19 21:05 Dose: 20 mg Bisacodyl (Dulcolax) 10 mg PO BID [facility] Ropivacaine 49 ml/Dexamethasone 8 mg/Epinephrine HCl 0.4 mg/ Sodium Chloride 28.6 ml 0 ml NERVRT ASDIRECTED [facility] Cyclobenzaprine HCl (Flexeril) 10 mg PO Q6H PRN PRN Reason: MUSCLE SPASM Finasteride (Proscar) 5 mg PO DAILY [facility] Fluticasone Propionate (Flonase) 0 gm NASBOTH DAILY [facility] Hydromorphone HCl (Dilaudid [employer] 15 Mg In Ns 30 Ml) 0 mg IV ASDIRECTED PRN; Protocol 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 Last Admin: 06/19/19 10:28 Dose: 15 mg Hydroxyzine HCl (Vistaril) 100 mg IM Q4H PRN PRN Reason: PAIN Diltiazem HCl 125 mg/ Sodium (Chloride) 125 mls @ 5 mls/hr IV TITRATE [facility]; Protocol Last Titration: 06/19/19 17:00 Dose: 5 mg/hr, 5 mls/hr Meropenem 500 mg/ Sodium (Chloride) 50 mls @ 100 mls/hr IV Q6H [facility] Stop: 06/20/19 23:29 Last Admin: 06/20/19 04:44 Dose: 100 mls/hr Dextrose/Lactated Ringer's (Dextrose 5%-Lactated Ringers) 1,000 mls @ 100 mls/ hr IV ASDIRECTED [facility] Ibuprofen (Motrin) 600 mg PO Q6H [facility] Levothyroxine Sodium (Levothyroxine) 112 mcg PO DAILY@0730 [facility] Last Admin: 06/20/19 08:11 Dose: 112 mcg Lisinopril (Prinivil) 10 mg PO DAILY [facility] Loratadine (Claritin) 10 mg PO DAILY [facility] Naloxone HCl (Narcan) 0.1 mg IV ASDIRECTED PRN PRN Reason: decreased respiratory rate Ondansetron HCl (Zofran) 4 mg IV Q4H PRN PRN Reason: Nausea/Vomiting Pantoprazole Sodium (Protonix Iv) 40 mg IV Q24H [facility] Last Admin: 06/19/19 16:09 Dose: 40 mg Senna (Senna) 17.2 mg PO BID [facility] Tamsulosin HCl (Flomax) 0.4 mg PO DAILY [facility] Tramadol HCl (Ultram) 50 mg PO Q6H [facility] Valacyclovir HCl (Valtrex) 1,000 mg PO TID [facility] Last Admin: 06/19/19 21:05 Dose: 1,000 mg Discontinued Medications Aspirin (Halfprin) 81 mg PO DAILY [facility] Bupivacaine HCl/Epinephrine Bitart (Marcaine 0.5%/Epinephrine 1:200,000) Confirm Administered Dose 50 ml .ROUTE .STK-MED ONE Stop: 06/19/19 10:04 Ropivacaine 49 ml/Dexamethasone 8 mg/Epinephrine HCl 0.4 mg/ Sodium Chloride 28.6 ml 0 ml NERVRT ASDIRECTED [facility] Last Admin: 06/19/19 12:50 Dose: 80 syringe Dexamethasone (Dexamethasone) Confirm Administered Dose 4 mg .ROUTE .STK-MED ONE Stop: 06/19/19 08:50 Diltiazem HCl (Diltiazem) 20 mg IVPUSH ONETIME ONE Stop: 06/19/19 03:07 Last Admin: 06/19/19 03:22 Dose: 20 mg Diltiazem HCl (Diltiazem) Confirm Administered Dose 125 mg .ROUTE .STK-MED ONE Stop: 06/19/19 03:38 Last Admin: 06/19/19 03:46 Dose: Not Given Ephedrine Sulfate (Ephedrine Sulfate) Confirm Administered Dose 50 mg .ROUTE .STK-MED ONE Stop: 06/19/19 12:52 Fentanyl (Sublimaze) Confirm Administered Dose 250 mcg .ROUTE .STK-MED ONE Stop: 06/19/19 08:50 Glycopyrrolate (Robinul) Confirm Administered Dose 1 mg .ROUTE .STK-MED ONE Stop: 06/19/19 08:50 Heparin Sodium (Porcine) (Heparin Sodium) 5,000 units SUBCUT Q8H [facility] Last Admin: 06/19/19 07:20 Dose: Not Given Heparin Sodium (Porcine) (Heparin Sodium) 4,000 units IVPUSH BOLUS ONE Stop: 06/19/19 06:35 Last Admin: 06/19/19 08:20 Dose: Not Given Sodium Chloride (Normal Saline) 1,000 mls @ 999 mls/hr IV .BOLUS STA Stop: 06/19/19 04:09 Last Admin: 06/19/19 03:22 Dose: 999 mls/hr Sodium Chloride (Normal Saline) Confirm Administered Dose 100 mls @ as directed .ROUTE .STK-MED ONE Stop: 06/19/19 03:38 Last Admin: 06/19/19 03:46 Dose: Not Given Sodium Chloride (Normal Saline) 85 mls @ 0 mls/hr IV ONETIME ONE Stop: 06/19/19 06:01 Last Admin: 06/19/19 06:30 Dose: 3 mls/hr Heparin Sodium/Dextrose (Heparin 25,000 Units In D5w 500 Ml) 25,000 units in 500 mls @ 0 mls/hr IV TITRATE [facility]; Protocol Ceftriaxone Sodium 2 gm/ (Sodium Chloride) 50 mls @ 100 mls/hr IV Q24H [facility] Last Admin: 06/19/19 06:47 Dose: 100 mls/hr Heparin Sodium/Dextrose (Heparin 25,000 Units In D5w 500 Ml) 25,000 units in 500 mls @ 20 mls/hr IV TITRATE [facility]; Protocol Last Admin: 06/19/19 06:48 Dose: 20 ml/hr, 20 mls/hr Aztreonam 1 gm/ Sodium (Chloride) 50 mls @ 100 mls/hr IV Q8H [facility] Last Admin: 06/19/19 08:49 Dose: 100 mls/hr Ceftazidime 1 gm/ Sodium (Chloride) 50 mls @ 100 mls/hr IV Q8H [facility] Last Admin: 06/19/19 15:09 Dose: Not Given Magnesium Sulfate 2 gm/ Premix 50 mls @ 12.5 mls/hr IV ONETIME ONE Stop: 06/19/19 12:59 Last Admin: 06/19/19 10:10 Dose: 12.5 mls/hr Meropenem 500 mg/ Sodium (Chloride) 50 mls @ 100 mls/hr IV ONCALL ONE Stop: 06/19/19 13:59 Last Admin: 06/19/19 14:07 Dose: Not Given Ketamine HCl 50 mg/ Sodium (Chloride) 50 mls @ 21 mls/hr IV ASDIRECTED [facility] Dextrose/Lactated Ringer's (Dextrose 5%-Lactated Ringers) 1,000 mls @ 175 mls/ hr IV ASDIRECTED [facility] Last Admin: 06/20/19 06:52 Dose: 175 mls/hr Iopamidol (Isovue-300 (61%)) 147 ml IV ONETIME ONE Stop: 06/19/19 06:01 Last Admin: 06/19/19 06:29 Dose: 147 ml Ketamine HCl (Ketalar) 35 mg IV ASDIRECTED [facility] Meropenem (Merrem) Confirm Administered Dose 500 mg .ROUTE .STK-MED ONE Stop: 06/19/19 10:03 Last Admin: 06/19/19 12:11 Dose: 500 mg Morphine Sulfate (Morphine) 2 mg IVPUSH Q4H PRN PRN Reason: Pain (severe 7-10) Last Admin: 06/19/19 08:49 Dose: 2 mg Neostigmine Methylsulfate (Neostigmine) Confirm Administered Dose 5 mg .ROUTE .STK-MED ONE Stop: 06/19/19 08:50 Ondansetron HCl (Zofran) 4 mg IVPUSH ONETIME ONE Stop: 06/19/19 03:32 Last Admin: 06/19/19 03:37 Dose: 4 mg Ondansetron HCl (Zofran) Confirm Administered Dose 4 mg .ROUTE .STK-MED ONE Stop: 06/19/19 08:50 Propofol (Diprivan 20 Ml) Confirm Administered Dose 200 mg .ROUTE .STK-MED ONE Stop: 06/19/19 08:50 Rocuronium [place] (Zemuron) Confirm Administered Dose 50 mg .ROUTE .STK-MED ONE Stop: 06/19/19 08:50 Sodium Chloride (Saline Flush) 10 ml FLUSH ONETIME ONE Stop: 06/19/19 05:56 Last Admin: 06/19/19 06:29 Dose: 10 ml Succinylcholine Chloride (Quelicin) Confirm Administered Dose 200 mg .ROUTE .STK -MED ONE Stop: 06/19/19 08:50 Tamsulosin HCl (Flomax) 0.4 mg PO DAILY [facility] Valacyclovir HCl (Valtrex) 1,000 mg PO TID [facility] - Exam Quality Assessment: Supplemental Oxygen General: Alert, Oriented, Cooperative, No Acute Distress Lungs: Clear to Auscultation, Normal Respiratory Effort Cardiovascular: Regular Rate, Regular Rhythm GI/Abdominal Exam: Soft, No Distention Extremities: No Pedal Edema. No: Increased Warmth Skin: Warm, Dry Psy/Mental Status: Alert, Normal Affect - Problem List Review Problem List Initiated/Reviewed/Updated: Yes - My Orders Last 24 Hours: My Active Orders 06/19/19 08:48 Consult to Physician [CONS] Routine 06/19/19 08:49 Notify Provider Consults [RC] ASDIRECTED 06/19/19 15:30 valACYclovir [Valtrex] 1,000 mg PO TID 06/20/19 07:30 Levothyroxine 112 mcg PO DAILY@0730 06/20/19 09:00 Allopurinol [Zyloprim] 300 mg PO DAILY Aspirin [Halfprin] 81 mg PO DAILY Finasteride [Proscar] 5 mg PO DAILY Tamsulosin [Flomax] 0.4 mg PO DAILY - Plan Plan:: ASSESSMENT AND PLAN - Large mucocele of the appendix - status post surgical resection yesterday and clinically doing well at this time. Not yet passing gas but pain is fairly well controlled. Vital signs have been stable. -Postop cares per surgical team Atrial fibrillation with rapid ventricular response - converted to sinus rhythm yesterday and has remained stable. Diltiazem infusion stop this morning. 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 -Continue Valtrex -Hold steroids until safe postoperatively Essential hypertension - blood pressure control acceptable. -Continue lisinopril Maintenance issues - - DVT prophylaxis - mechanical - GI prophylaxis - PPI - Nutrition - nothing by mouth - [place] catheter - placed at time of surgery for strict intake and output monitoring Disposition - I would anticipate discharge home after the hospital stay Tomasz Phillips M.D.
[2019-06-20] MEDS: Sennosides 8.6 MG Tab PO SCH ×2 (09:12→21:01)
[2019-06-20] MEDS: Bisacodyl 5 MG Tab PO SCH ×2 (09:12→21:01)
[2019-06-20] MEDS: Loratadine 10 MG Tab PO SCH ×2 (09:12→09:26)
[2019-06-20] MEDS: Tamsulosin 0.4 MG Cap.ER PO SCH (09:13)
[2019-06-20] MEDS: Fluticasone Propionate Nasal Spray 16 GM Bottle NASBOTH SCH ×2 (09:13→09:26)
[2019-06-20] MEDS: Aspirin 81 MG Tab.EC PO SCH (09:13)
[2019-06-20] MEDS: valACYclovir 1,000 MG Tab PO SCH ×3 (09:14→21:01)
[2019-06-20] MEDS: Allopurinol 300 MG Tab PO SCH (09:14)
[2019-06-20] MEDS: Finasteride 5 MG Tab PO SCH (09:15)
[2019-06-20] MEDS: Lisinopril 10 MG Tab PO SCH (09:16)
[2019-06-20] MEDS: traMADol 50 MG Tab PO SCH ×3 (09:18→21:04)
[2019-06-20] MEDS: Ibuprofen 600 MG Tab PO SCH ×3 (12:44→23:01)
[2019-06-20] MEDS: Pantoprazole 40 MG Vial IV SCH (14:51)
[2019-06-20] MEDS: atorvaSTATin 20 MG Tab PO SCH (21:01)
[2019-06-21] MEDS: Acetaminophen 500 MG Tab PO SCH ×4 (02:14→21:53)
[2019-06-21] MEDS: Dextrose 5%-Lactated Ringers 1,000 ML IV SCH (02:16)
[2019-06-21] MEDS: traMADol 50 MG Tab PO SCH ×4 (05:48→22:05)
[2019-06-21] MEDS: Ibuprofen 600 MG Tab PO SCH ×4 (05:49→22:01)
[2019-06-21] MEDS ORDERED: Lidocaine 1% with EPINEPHrine 1:100,000 50 ML MDV ONE (06:44)
[2019-06-21] MEDS ORDERED: Bupivacaine 0.5% 50 ML MDV ONE (06:44)
[2019-06-21] MEDS ORDERED: Meropenem 500 MG SDV ONE (06:44)
[2019-06-21] MEDS ORDERED: Propofol 200 MG/20 ML SDV ONE (07:08)
[2019-06-21] MEDS ORDERED: fentaNYL 100 MCG/2 ML SDV ONE (07:08)
[2019-06-21] MEDS ORDERED: Lactated Ringers 1,000 ML ONE (09:15)
[2019-06-21] MEDS: Levothyroxine 112 MCG Tab PO SCH (10:30)
[2019-06-21] MEDS: Loratadine 10 MG Tab PO SCH ×2 (10:30→10:37)
[2019-06-21] MEDS: Bisacodyl 5 MG Tab PO SCH ×2 (10:30→21:57)
[2019-06-21] MEDS: Lisinopril 10 MG Tab PO SCH (10:31)
[2019-06-21] MEDS: Finasteride 5 MG Tab PO SCH (10:31)
[2019-06-21] MEDS: Fluticasone Propionate Nasal Spray 16 GM Bottle NASBOTH SCH ×2 (10:31→10:37)
[2019-06-21] MEDS: Aspirin 81 MG Tab.EC PO SCH (10:31)
[2019-06-21] MEDS: Tamsulosin 0.4 MG Cap.ER PO SCH (10:31)
[2019-06-21] MEDS: Sennosides 8.6 MG Tab PO SCH ×2 (10:31→21:57)
[2019-06-21] MEDS: Allopurinol 300 MG Tab PO SCH (10:32)
[2019-06-21] MEDS: valACYclovir 1,000 MG Tab PO SCH ×4 (11:02→21:59)
[2019-06-21] MEDS ORDERED: oxyCODONE 5 MG Tab PO PRN (11:48)
--- NOTE | 2019-06-21 11:50 | PCM.PN ---
- General Info Date of Service: 06/21/19 Subjective Update: No acute events overnight. Pain has been well-controlled and he has used minimal pain medication. No nausea. No shortness of breath. He has been taking some walks. He has remained in sinus rhythm. White blood cell count trending down. Not passing gas or having bowel movements as of yet. Functional Status: Reports: Pain Controlled - Review of Systems General: Denies: Fever Gastrointestinal: Reports: Abdominal Pain - Patient Data Vitals - Most Recent: Last Vital Signs Temp 36.1 C 06/21/19 10:15 Pulse 102 H 06/21/19 11:15 Resp 18 06/21/19 11:15 BP 170/72 H 06/21/19 11:15 Pulse Ox 96 06/21/19 11:15 Weight - Most Recent: 98.8 kg I&O - Last 24 Hours: Intake & Output 06/20/19 06/21/19 06/21/19 22:59 06:59 14:59 Intake Total 1618 Output Total 1200 1742 350 Balance -1200 -124 -350 Lab Results Last 24 Hours: Laboratory Results - last 24 hr 06/21/19 06/21/19 Range/Units 05:04 05:04 WBC 19.9 H (4.5-11.0) K/uL RBC 3.81 L (4.30-5.90) M/uL Hgb 11.7 L (12.0-15.0) g/dL Hct 35.7 L (40.0-54.0) % MCV 94 (80-98) fL MCH 31 (27-31) pg MCHC 33 (32-36) % Plt Count 368 (150-400) K/uL Sodium 137 L (140-148) mmol/L Potassium 4.3 (3.6-5.2) mmol/L Chloride 103 (100-108) mmol/L Carbon Dioxide 29 (21-32) mmol/L Anion Gap 9.3 (5.0-14.0) mmol/L BUN 24 H (7-18) mg/dL Creatinine 1.4 H (0.8-1.3) mg/dL Est Cr Clr Drug Dosing 46.84 mL/min Estimated GFR (MDRD) 50 L (>60) Glucose 122 H (74-106) mg/dL Calcium 8.7 (8.5-10.1) mg/dL Phosphorus 3.7 (2.5-4.9) mg/dL Magnesium 1.8 (1.8-2.4) mg/dL Total Bilirubin 0.3 (0.2-1.0) mg/dL AST 30 (15-37) U/L ALT 49 (12-78) U/L Alkaline Phosphatase 85 (46-116) U/L NT-Pro-B Natriuret Pep 1051 H (5-125) pg/mL Total Protein 6.3 L (6.4-8.2) g/dL Albumin 2.5 L (3.4-5.0) g/dL Globulin 3.8 H (2.3-3.5) g/dL Albumin/Globulin Ratio 0.7 L (1.2-2.2) Jamal Results Last 24 Hours: Microbiology 06/19/19 06:25 Aerobic Blood Culture - Preliminary Blood - Venous - Lab Draw NO GROWTH AFTER 2 DAYS Anaerobic Blood Culture - Preliminary NO GROWTH AFTER 2 DAYS 06/19/19 06:25 Aerobic Blood Culture - Preliminary Blood - Venous NO GROWTH AFTER 2 DAYS Anaerobic Blood Culture - Preliminary NO GROWTH AFTER 2 DAYS Med Orders - Current: Current Medications Acetaminophen (Tylenol Extra Strength) 1,000 mg PO Q6H [facility] Last Admin: 06/21/19 10:30 Dose: 1,000 mg Allopurinol (Zyloprim) 300 mg PO DAILY [facility] Last Admin: 06/21/19 10:32 Dose: 300 mg Aspirin (Halfprin) 81 mg PO DAILY [facility] Last Admin: 06/21/19 10:31 Dose: 81 mg Atorvastatin Calcium (Lipitor) 20 mg PO BEDTIME [facility] Last Admin: 06/20/19 21:01 Dose: 20 mg Bisacodyl (Dulcolax) 10 mg PO BID [facility] Last Admin: 06/21/19 10:30 Dose: 10 mg Cyclobenzaprine HCl (Flexeril) 10 mg PO Q6H PRN PRN Reason: MUSCLE SPASM Finasteride (Proscar) 5 mg PO DAILY [facility] Last Admin: 06/21/19 10:31 Dose: 5 mg Fluticasone Propionate (Flonase) 0 gm NASBOTH DAILY [facility] Last Admin: 06/21/19 10:37 Dose: Not Given Hydromorphone HCl (Dilaudid [employer] 15 Mg In Ns 30 Ml) 0 mg IV ASDIRECTED PRN; Protocol PRN Reason: BED LASTER PAIN CONTROL Last Admin: 06/19/19 10:28 Dose: 15 mg Hydroxyzine HCl (Vistaril) 100 mg IM Q4H PRN PRN Reason: PAIN Dextrose/Lactated Ringer's (Dextrose 5%-Lactated Ringers) 1,000 mls @ 100 mls/ hr IV ASDIRECTED [facility] Last Admin: 06/21/19 02:16 Dose: 100 mls/hr Ibuprofen (Motrin) 600 mg PO Q6H [facility] Last Admin: 06/21/19 11:02 Dose: Not Given Levothyroxine Sodium (Levothyroxine) 112 mcg PO DAILY@0730 [facility] Last Admin: 06/21/19 10:30 Dose: 112 mcg Lisinopril (Prinivil) 10 mg PO DAILY [facility] Last Admin: 06/21/19 10:31 Dose: 10 mg Loratadine (Claritin) 10 mg PO DAILY [facility] Last Admin: 06/21/19 10:37 Dose: Not Given Naloxone HCl (Narcan) 0.1 mg IV ASDIRECTED PRN PRN Reason: decreased respiratory rate Ondansetron HCl (Zofran) 4 mg IV Q4H PRN PRN Reason: Nausea/Vomiting Pantoprazole Sodium (Protonix Iv) 40 mg IV Q24H [facility] Last Admin: 06/20/19 14:51 Dose: 40 mg Senna (Senna) 17.2 mg PO BID [facility] Last Admin: 06/21/19 10:31 Dose: 17.2 mg Tamsulosin HCl (Flomax) 0.4 mg PO DAILY [facility] Last Admin: 06/21/19 10:31 Dose: 0.4 mg Tramadol HCl (Ultram) 50 mg PO Q6H [facility] Last Admin: 06/21/19 10:36 Dose: Not Given Valacyclovir HCl (Valtrex) 1,000 mg PO TID [facility] Last Admin: 06/21/19 11:36 Dose: 1,000 mg Discontinued Medications Aspirin (Halfprin) 81 mg PO DAILY [facility] Bupivacaine HCl (Marcaine 0.5%) Confirm Administered Dose 50 ml .ROUTE .STK-MED ONE Stop: 06/21/19 06:45 Last Admin: 06/21/19 10:27 Dose: 15 ml Bupivacaine HCl/Epinephrine Bitart (Marcaine 0.5%/Epinephrine 1:200,000) Confirm Administered Dose 50 ml .ROUTE .STK-MED ONE Stop: 06/19/19 10:04 Ropivacaine 49 ml/Dexamethasone 8 mg/Epinephrine HCl 0.4 mg/ Sodium Chloride 28.6 ml 0 ml NERVRT ASDIRECTED [facility] Last Admin: 06/19/19 12:50 Dose: 80 syringe Ropivacaine 49 ml/Dexamethasone 8 mg/Epinephrine HCl 0.4 mg/ Sodium Chloride 28.6 ml 0 ml NERVRT ASDIRECTED [facility] Last Admin: 06/21/19 10:20 Dose: 80 syringe Dexamethasone (Dexamethasone) Confirm Administered Dose 4 mg .ROUTE .STK-MED ONE Stop: 06/19/19 08:50 Diltiazem HCl (Diltiazem) 20 mg IVPUSH ONETIME ONE Stop: 06/19/19 03:07 Last Admin: 06/19/19 03:22 Dose: 20 mg Diltiazem HCl (Diltiazem) Confirm Administered Dose 125 mg .ROUTE .STK-MED ONE Stop: 06/19/19 03:38 Last Admin: 06/19/19 03:46 Dose: Not Given Ephedrine Sulfate (Ephedrine Sulfate) Confirm Administered Dose 50 mg .ROUTE .STK-MED ONE Stop: 06/19/19 12:52 Fentanyl (Sublimaze) Confirm Administered Dose 250 mcg .ROUTE .STK-MED ONE Stop: 06/19/19 08:50 Fentanyl (Sublimaze) Confirm Administered Dose 100 mcg .ROUTE .STK-MED ONE Stop: 06/21/19 07:09 Glycopyrrolate (Robinul) Confirm Administered Dose 1 mg .ROUTE .STK-MED ONE Stop: 06/19/19 08:50 Heparin Sodium (Porcine) (Heparin Sodium) 5,000 units SUBCUT Q8H [facility] Last Admin: 06/19/19 07:20 Dose: Not Given Heparin Sodium (Porcine) (Heparin Sodium) 4,000 units IVPUSH BOLUS ONE Stop: 06/19/19 06:35 Last Admin: 06/19/19 08:20 Dose: Not Given Sodium Chloride (Normal Saline) 1,000 mls @ 999 mls/hr IV .BOLUS STA Stop: 06/19/19 04:09 Last Admin: 06/19/19 03:22 Dose: 999 mls/hr Diltiazem HCl 125 mg/ Sodium (Chloride) 125 mls @ 5 mls/hr IV TITRATE [facility]; Protocol Last Titration: 06/19/19 17:00 Dose: 5 mg/hr, 5 mls/hr Sodium Chloride (Normal Saline) Confirm Administered Dose 100 mls @ as directed .ROUTE .STK-MED ONE Stop: 06/19/19 03:38 Last Admin: 06/19/19 03:46 Dose: Not Given Sodium Chloride (Normal Saline) 85 mls @ 0 mls/hr IV ONETIME ONE Stop: 06/19/19 06:01 Last Admin: 06/19/19 06:30 Dose: 3 mls/hr Heparin Sodium/Dextrose (Heparin 25,000 Units In D5w 500 Ml) 25,000 units in 500 mls @ 0 mls/hr IV TITRATE [facility]; Protocol Ceftriaxone Sodium 2 gm/ (Sodium Chloride) 50 mls @ 100 mls/hr IV Q24H [facility] Last Admin: 06/19/19 06:47 Dose: 100 mls/hr Heparin Sodium/Dextrose (Heparin 25,000 Units In D5w 500 Ml) 25,000 units in 500 mls @ 20 mls/hr IV TITRATE [facility]; Protocol Last Admin: 06/19/19 06:48 Dose: 20 ml/hr, 20 mls/hr Aztreonam 1 gm/ Sodium (Chloride) 50 mls @ 100 mls/hr IV Q8H [facility] Last Admin: 06/19/19 08:49 Dose: 100 mls/hr Ceftazidime 1 gm/ Sodium (Chloride) 50 mls @ 100 mls/hr IV Q8H [facility] Last Admin: 06/19/19 15:09 Dose: Not Given Magnesium Sulfate 2 gm/ Premix 50 mls @ 12.5 mls/hr IV ONETIME ONE Stop: 06/19/19 12:59 Last Admin: 06/19/19 10:10 Dose: 12.5 mls/hr Meropenem 500 mg/ Sodium (Chloride) 50 mls @ 100 mls/hr IV ONCALL ONE Stop: 06/19/19 13:59 Last Admin: 06/19/19 14:07 Dose: Not Given Ketamine HCl 50 mg/ Sodium (Chloride) 50 mls @ 21 mls/hr IV ASDIRECTED [facility] Dextrose/Lactated Ringer's (Dextrose 5%-Lactated Ringers) 1,000 mls @ 175 mls/ hr IV ASDIRECTED [facility] Last Admin: 06/20/19 06:52 Dose: 175 mls/hr Meropenem 500 mg/ Sodium (Chloride) 50 mls @ 100 mls/hr IV Q6H [facility] Stop: 06/20/19 23:29 Last Admin: 06/20/19 23:00 Dose: 100 mls/hr Lactated Ringer's (Ringers, Lactated) Confirm Administered Dose 1,000 mls @ as directed .ROUTE .STK-MED ONE Stop: 06/21/19 09:16 Iopamidol (Isovue-300 (61%)) 147 ml IV ONETIME ONE Stop: 06/19/19 06:01 Last Admin: 06/19/19 06:29 Dose: 147 ml Ketamine HCl (Ketalar) 35 mg IV ASDIRECTED [facility] Lidocaine/Epinephrine (Xylocaine 1% With Epinephrine 1:100,000) Confirm Administered Dose 50 ml .ROUTE .STK-MED ONE Stop: 06/21/19 06:45 Last Admin: 06/21/19 10:27 Dose: 15 ml Meropenem (Merrem) Confirm Administered Dose 500 mg .ROUTE .STK-MED ONE Stop: 06/19/19 10:03 Last Admin: 06/19/19 12:11 Dose: 500 mg Meropenem (Merrem) Confirm Administered Dose 500 mg .ROUTE .STK-MED ONE Stop: 06/21/19 06:45 Morphine Sulfate (Morphine) 2 mg IVPUSH Q4H PRN PRN Reason: Pain (severe 7-10) Last Admin: 06/19/19 08:49 Dose: 2 mg Neostigmine Methylsulfate (Neostigmine) Confirm Administered Dose 5 mg .ROUTE .STK-MED ONE Stop: 06/19/19 08:50 Ondansetron HCl (Zofran) 4 mg IVPUSH ONETIME ONE Stop: 06/19/19 03:32 Last Admin: 06/19/19 03:37 Dose: 4 mg Ondansetron HCl (Zofran) Confirm Administered Dose 4 mg .ROUTE .STK-MED ONE Stop: 06/19/19 08:50 Propofol (Diprivan 20 Ml) Confirm Administered Dose 200 mg .ROUTE .STK-MED ONE Stop: 06/19/19 08:50 Propofol (Diprivan 20 Ml) Confirm Administered Dose 200 mg .ROUTE .STK-MED ONE Stop: 06/21/19 07:09 Rocuronium [place] (Zemuron) Confirm Administered Dose 50 mg .ROUTE .STK-MED ONE Stop: 06/19/19 08:50 Sodium Chloride (Saline Flush) 10 ml FLUSH ONETIME ONE Stop: 06/19/19 05:56 Last Admin: 06/19/19 06:29 Dose: 10 ml Succinylcholine Chloride (Quelicin) Confirm Administered Dose 200 mg .ROUTE .STK -MED ONE Stop: 06/19/19 08:50 Tamsulosin HCl (Flomax) 0.4 mg PO DAILY [facility] Valacyclovir HCl (Valtrex) 1,000 mg PO TID [facility] - Exam Quality Assessment: No: Supplemental Oxygen General: Alert, Oriented, Cooperative, No Acute Distress Lungs: Clear to Auscultation, Normal Respiratory Effort Cardiovascular: Regular Rate, Regular Rhythm GI/Abdominal Exam: Soft, No Distention, Abnormal Bowel Sounds (hypoactive) Extremities: No Pedal Edema. No: Increased Warmth Skin: Warm, Dry Psy/Mental Status: Alert, Normal Affect - Problem List Review Problem List Initiated/Reviewed/Updated: Yes - My Orders Last 24 Hours: My Active Orders 06/20/19 17:33 Transfer Patient (Change bed) [ADT] Routine 06/20/19 17:34 Up With Assistance [RC] ASDIRECTED 06/21/19 11:48 Discontinue Telemetry Monitoring [Cardiac Monitoring Discontinue] [RC] Click to Edit oxyCODONE 5 mg PO Q4H PRN 06/21/19 11:49 Convert IV to Saline Lock [OM.PC] Routine 06/22/19 05:00 BASIC METABOLIC PANEL,BMP [CHEM] Timed CBC W/O DIFF,HEMOGRAM [HEME] Timed (1) - Plan Plan:: ASSESSMENT AND PLAN - 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 Not yet passing gas. Pain is fairly well controlled. Vital signs have been stable. -Discontinue BED LASTER -Oxycodone for breakthrough pain -Postop cares per surgical team Atrial fibrillation with rapid ventricular response - converted to sinus rhythm and has remained stable in sinus rhythm. 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 -Continue Valtrex -Hold steroids until safe postoperatively Essential hypertension - blood pressure control acceptable. -Continue lisinopril Maintenance issues - - DVT prophylaxis - mechanical - GI prophylaxis - PPI - Nutrition - advance per surgical team - [place] catheter - removed yesterday Disposition - I would anticipate discharge home after the hospital stay Tomasz Phillips M.D.
[2019-06-21] MEDS: Ondansetron 4 MG/2 ML SDV IV PRN (18:18)
[2019-06-21] MEDS: atorvaSTATin 20 MG Tab PO SCH (22:00)
[2019-06-22] MEDS: Acetaminophen 500 MG Tab PO SCH ×5 (02:29→21:58)
[2019-06-22] MEDS: traMADol 50 MG Tab PO SCH ×4 (03:01→21:24)
[2019-06-22] MEDS: Ibuprofen 600 MG Tab PO SCH ×3 (04:12→17:09)
[2019-06-22] MEDS: Levothyroxine 112 MCG Tab PO SCH (07:24)
--- NOTE | 2019-06-22 08:50 | PN ---
DATE OF SERVICE: 06/22/2019 The patient has been afebrile with stable vital signs. Did move his bowels and we will go to regular diet today. Blood pressure is little high and we gave him some IV Lasix this morning. Otherwise, he may be ready for discharge home tomorrow. Yuri Rosales MD /[id number]
[2019-06-22] MEDS: Fluticasone Propionate Nasal Spray 16 GM Bottle NASBOTH SCH (09:04)
[2019-06-22] MEDS: Loratadine 10 MG Tab PO SCH (09:04)
[2019-06-22] MEDS: Aspirin 81 MG Tab.EC PO SCH (09:05)
[2019-06-22] MEDS: Bisacodyl 5 MG Tab PO SCH (09:05)
[2019-06-22] MEDS: Tamsulosin 0.4 MG Cap.ER PO SCH (09:05)
[2019-06-22] MEDS: Lisinopril 10 MG Tab PO SCH (09:05)
[2019-06-22] MEDS: valACYclovir 1,000 MG Tab PO SCH ×3 (09:06→21:19)
[2019-06-22] MEDS: Allopurinol 300 MG Tab PO SCH (09:06)
[2019-06-22] MEDS: Finasteride 5 MG Tab PO SCH (09:06)
[2019-06-22] MEDS: Sennosides 8.6 MG Tab PO SCH ×2 (09:06→21:19)
--- NOTE | 2019-06-22 09:17 | PN ---
DATE OF SERVICE: 06/20/2019 The patient has been afebrile with stable vital signs. No further atrial fibrillation. He continues on a Cardizem drip and it will likely be stopped later in the morning, and if he remains stable, he can probably be transferred to second floor per Dr. Phillips. Otherwise, urine output is fairly good. We will back down the IV rate. Begin scheduled Tylenol, ibuprofen, tramadol in an anticipation of a delayed primary closure tomorrow, then perhaps switching to oral pain medication at that time. Otherwise, we will begin bowel stimulation as well, maximize and work with pulmonary toilet, and await the pathology report. Yuri Rosales MD /[id number]
[2019-06-22] MEDS ORDERED: Bisacodyl 5 MG Tab PO PRN (11:00)
--- NOTE | 2019-06-22 11:01 | PCM.PN ---
- General Info Date of Service: 06/22/19 Subjective Update: No acute events overnight and clinically doing well. Mild to moderate hypertension but no symptoms such as headache or chest pain. Pain steadily improving. Strength and endurance improving. Trace lower extremity edema. No fevers. Functional Status: Reports: Pain Controlled, Tolerating Diet - Review of Systems General: Denies: Fever Gastrointestinal: Reports: Abdominal Pain (mild) - Patient Data Vitals - Most Recent: Last Vital Signs Temp 35.9 C 06/22/19 07:20 Pulse 88 06/22/19 07:20 Resp 18 06/22/19 07:20 BP 164/76 H 06/22/19 09:05 Pulse Ox 97 06/22/19 07:20 Weight - Most Recent: 98.8 kg I&O - Last 24 Hours: Intake & Output 06/21/19 06/22/19 06/22/19 22:59 06:59 14:59 Intake Total 200 200 300 Output Total 1175 300 300 Balance -975 -100 0 Lab Results Last 24 Hours: Laboratory Results - last 24 hr 06/22/19 06/22/19 Range/Units 04:59 04:59 WBC 15.3 H (4.5-11.0) K/uL RBC 3.89 L (4.30-5.90) M/uL Hgb 11.9 L (12.0-15.0) g/dL Hct 36.1 L (40.0-54.0) % MCV 93 (80-98) fL MCH 31 (27-31) pg MCHC 33 (32-36) % Plt Count 354 (150-400) K/uL Sodium 136 L (140-148) mmol/L Potassium 4.4 (3.6-5.2) mmol/L Chloride 102 (100-108) mmol/L Carbon Dioxide 30 (21-32) mmol/L Anion Gap 8.4 (5.0-14.0) mmol/L BUN 24 H (7-18) mg/dL Creatinine 1.3 (0.8-1.3) mg/dL Est Cr Clr Drug Dosing 50.44 mL/min Estimated GFR (MDRD) 54 L (>60) Glucose 116 H (74-106) mg/dL Calcium 8.9 (8.5-10.1) mg/dL Jamal Results Last 24 Hours: Microbiology 06/19/19 06:25 Aerobic Blood Culture - Preliminary Blood - Venous NO GROWTH AFTER 3 DAYS Anaerobic Blood Culture - Preliminary NO GROWTH AFTER 3 DAYS 06/19/19 06:25 Aerobic Blood Culture - Preliminary Blood - Venous - Lab Draw NO GROWTH AFTER 3 DAYS Anaerobic Blood Culture - Preliminary NO GROWTH AFTER 3 DAYS Med Orders - Current: Current Medications Acetaminophen (Tylenol Extra Strength) 1,000 mg PO Q6H [facility] Last Admin: 06/22/19 07:24 Dose: 1,000 mg Allopurinol (Zyloprim) 300 mg PO DAILY [facility] Last Admin: 06/22/19 09:06 Dose: 300 mg Aspirin (Halfprin) 81 mg PO DAILY [facility] Last Admin: 06/22/19 09:05 Dose: 81 mg Atorvastatin Calcium (Lipitor) 20 mg PO BEDTIME [facility] Last Admin: 06/21/19 22:00 Dose: 20 mg Bisacodyl (Dulcolax) 10 mg PO BID PRN PRN Reason: BM Cyclobenzaprine HCl (Flexeril) 10 mg PO Q6H PRN PRN Reason: MUSCLE SPASM Finasteride (Proscar) 5 mg PO DAILY [facility] Last Admin: 06/22/19 09:06 Dose: 5 mg Fluticasone Propionate (Flonase) 0 gm NASBOTH DAILY [facility] Last Admin: 06/22/19 09:04 Dose: Not Given Furosemide (Lasix) 20 mg IVPUSH ONETIME ONE Stop: 06/22/19 11:31 Hydroxyzine HCl (Vistaril) 100 mg IM Q4H PRN PRN Reason: PAIN Ibuprofen (Motrin) 600 mg PO Q6H [facility] Last Admin: 06/22/19 04:12 Dose: 600 mg Levothyroxine Sodium (Levothyroxine) 112 mcg PO DAILY@0730 [facility] Last Admin: 06/22/19 07:24 Dose: 112 mcg Lisinopril (Prinivil) 10 mg PO DAILY [facility] Last Admin: 06/22/19 09:05 Dose: 10 mg Loratadine (Claritin) 10 mg PO DAILY [facility] Last Admin: 06/22/19 09:04 Dose: Not Given Ondansetron HCl (Zofran) 4 mg IV Q4H PRN PRN Reason: Nausea/Vomiting Last Admin: 06/21/19 18:18 Dose: 4 mg Oxycodone HCl (Oxycodone) 5 mg PO Q4H PRN PRN Reason: Pain (moderate 4-6) Senna (Senna) 17.2 mg PO BID [facility] Last Admin: 06/22/19 09:06 Dose: 17.2 mg Tamsulosin HCl (Flomax) 0.4 mg PO DAILY [facility] Last Admin: 06/22/19 09:05 Dose: 0.4 mg Tramadol HCl (Ultram) 50 mg PO Q6H [facility] Last Admin: 06/22/19 09:07 Dose: 50 mg Valacyclovir HCl (Valtrex) 1,000 mg PO TID [facility] Last Admin: 06/22/19 09:06 Dose: 1,000 mg Discontinued Medications Aspirin (Halfprin) 81 mg PO DAILY [facility] Bisacodyl (Dulcolax) 10 mg PO BID [facility] Last Admin: 06/22/19 09:05 Dose: 10 mg Bupivacaine HCl (Marcaine 0.5%) Confirm Administered Dose 50 ml .ROUTE .STK-MED ONE Stop: 06/21/19 06:45 Last Admin: 06/21/19 10:27 Dose: 15 ml Bupivacaine HCl/Epinephrine Bitart (Marcaine 0.5%/Epinephrine 1:200,000) Confirm Administered Dose 50 ml .ROUTE .STK-MED ONE Stop: 06/19/19 10:04 Ropivacaine 49 ml/Dexamethasone 8 mg/Epinephrine HCl 0.4 mg/ Sodium Chloride 28.6 ml 0 ml NERVRT ASDIRECTED [facility] Last Admin: 06/19/19 12:50 Dose: 80 syringe Ropivacaine 49 ml/Dexamethasone 8 mg/Epinephrine HCl 0.4 mg/ Sodium Chloride 28.6 ml 0 ml NERVRT ASDIRECTED [facility] Last Admin: 06/21/19 10:20 Dose: 80 syringe Dexamethasone (Dexamethasone) Confirm Administered Dose 4 mg .ROUTE .STK-MED ONE Stop: 06/19/19 08:50 Diltiazem HCl (Diltiazem) 20 mg IVPUSH ONETIME ONE Stop: 06/19/19 03:07 Last Admin: 06/19/19 03:22 Dose: 20 mg Diltiazem HCl (Diltiazem) Confirm Administered Dose 125 mg .ROUTE .STK-MED ONE Stop: 06/19/19 03:38 Last Admin: 06/19/19 03:46 Dose: Not Given Ephedrine Sulfate (Ephedrine Sulfate) Confirm Administered Dose 50 mg .ROUTE .STK-MED ONE Stop: 06/19/19 12:52 Fentanyl (Sublimaze) Confirm Administered Dose 250 mcg .ROUTE .STK-MED ONE Stop: 06/19/19 08:50 Fentanyl (Sublimaze) Confirm Administered Dose 100 mcg .ROUTE .STK-MED ONE Stop: 06/21/19 07:09 Glycopyrrolate (Robinul) Confirm Administered Dose 1 mg .ROUTE .STK-MED ONE Stop: 06/19/19 08:50 Heparin Sodium (Porcine) (Heparin Sodium) 5,000 units SUBCUT Q8H [facility] Last Admin: 06/19/19 07:20 Dose: Not Given Heparin Sodium (Porcine) (Heparin Sodium) 4,000 units IVPUSH BOLUS ONE Stop: 06/19/19 06:35 Last Admin: 06/19/19 08:20 Dose: Not Given Hydromorphone HCl (Dilaudid [employer] 15 Mg In Ns 30 Ml) 0 mg IV ASDIRECTED PRN; Protocol PRN Reason: AEROSPACE MECHANIC PAIN CONTROL Last Admin: 06/19/19 10:28 Dose: 15 mg Sodium Chloride (Normal Saline) 1,000 mls @ 999 mls/hr IV .BOLUS STA Stop: 06/19/19 04:09 Last Admin: 06/19/19 03:22 Dose: 999 mls/hr Diltiazem HCl 125 mg/ Sodium (Chloride) 125 mls @ 5 mls/hr IV TITRATE [facility]; Protocol Last Titration: 06/19/19 17:00 Dose: 5 mg/hr, 5 mls/hr Sodium Chloride (Normal Saline) Confirm Administered Dose 100 mls @ as directed .ROUTE .STK-MED ONE Stop: 06/19/19 03:38 Last Admin: 06/19/19 03:46 Dose: Not Given Sodium Chloride (Normal Saline) 85 mls @ 0 mls/hr IV ONETIME ONE Stop: 06/19/19 06:01 Last Admin: 06/19/19 06:30 Dose: 3 mls/hr Heparin Sodium/Dextrose (Heparin 25,000 Units In D5w 500 Ml) 25,000 units in 500 mls @ 0 mls/hr IV TITRATE [facility]; Protocol Ceftriaxone Sodium 2 gm/ (Sodium Chloride) 50 mls @ 100 mls/hr IV Q24H [facility] Last Admin: 06/19/19 06:47 Dose: 100 mls/hr Heparin Sodium/Dextrose (Heparin 25,000 Units In D5w 500 Ml) 25,000 units in 500 mls @ 20 mls/hr IV TITRATE [facility]; Protocol Last Admin: 06/19/19 06:48 Dose: 20 ml/hr, 20 mls/hr Aztreonam 1 gm/ Sodium (Chloride) 50 mls @ 100 mls/hr IV Q8H [facility] Last Admin: 06/19/19 08:49 Dose: 100 mls/hr Ceftazidime 1 gm/ Sodium (Chloride) 50 mls @ 100 mls/hr IV Q8H [facility] Last Admin: 06/19/19 15:09 Dose: Not Given Magnesium Sulfate 2 gm/ Premix 50 mls @ 12.5 mls/hr IV ONETIME ONE Stop: 06/19/19 12:59 Last Admin: 06/19/19 10:10 Dose: 12.5 mls/hr Meropenem 500 mg/ Sodium (Chloride) 50 mls @ 100 mls/hr IV ONCALL ONE Stop: 06/19/19 13:59 Last Admin: 06/19/19 14:07 Dose: Not Given Ketamine HCl 50 mg/ Sodium (Chloride) 50 mls @ 21 mls/hr IV ASDIRECTED [facility] Dextrose/Lactated Ringer's (Dextrose 5%-Lactated Ringers) 1,000 mls @ 175 mls/ hr IV ASDIRECTED [facility] Last Admin: 06/20/19 06:52 Dose: 175 mls/hr Meropenem 500 mg/ Sodium (Chloride) 50 mls @ 100 mls/hr IV Q6H [facility] Stop: 06/20/19 23:29 Last Admin: 06/20/19 23:00 Dose: 100 mls/hr Dextrose/Lactated Ringer's (Dextrose 5%-Lactated Ringers) 1,000 mls @ 100 mls/ hr IV ASDIRECTED [facility] Last Admin: 06/21/19 02:16 Dose: 100 mls/hr Lactated Ringer's (Ringers, Lactated) Confirm Administered Dose 1,000 mls @ as directed .ROUTE .STK-MED ONE Stop: 06/21/19 09:16 Iopamidol (Isovue-300 (61%)) 147 ml IV ONETIME ONE Stop: 06/19/19 06:01 Last Admin: 06/19/19 06:29 Dose: 147 ml Ketamine HCl (Ketalar) 35 mg IV ASDIRECTED [facility] Lidocaine/Epinephrine (Xylocaine 1% With Epinephrine 1:100,000) Confirm Administered Dose 50 ml .ROUTE .STK-MED ONE Stop: 06/21/19 06:45 Last Admin: 06/21/19 10:27 Dose: 15 ml Meropenem (Merrem) Confirm Administered Dose 500 mg .ROUTE .STK-MED ONE Stop: 06/19/19 10:03 Last Admin: 06/19/19 12:11 Dose: 500 mg Meropenem (Merrem) Confirm Administered Dose 500 mg .ROUTE .STK-MED ONE Stop: 06/21/19 06:45 Morphine Sulfate (Morphine) 2 mg IVPUSH Q4H PRN PRN Reason: Pain (severe 7-10) Last Admin: 06/19/19 08:49 Dose: 2 mg Naloxone HCl (Narcan) 0.1 mg IV ASDIRECTED PRN PRN Reason: decreased respiratory rate Neostigmine Methylsulfate (Neostigmine) Confirm Administered Dose 5 mg .ROUTE .STK-MED ONE Stop: 06/19/19 08:50 Ondansetron HCl (Zofran) 4 mg IVPUSH ONETIME ONE Stop: 06/19/19 03:32 Last Admin: 06/19/19 03:37 Dose: 4 mg Ondansetron HCl (Zofran) Confirm Administered Dose 4 mg .ROUTE .STK-MED ONE Stop: 06/19/19 08:50 Pantoprazole Sodium (Protonix Iv) 40 mg IV Q24H [facility] Last Admin: 06/20/19 14:51 Dose: 40 mg Propofol (Diprivan 20 Ml) Confirm Administered Dose 200 mg .ROUTE .STK-MED ONE Stop: 06/19/19 08:50 Propofol (Diprivan 20 Ml) Confirm Administered Dose 200 mg .ROUTE .STK-MED ONE Stop: 06/21/19 07:09 Rocuronium [place] (Zemuron) Confirm Administered Dose 50 mg .ROUTE .STK-MED ONE Stop: 06/19/19 08:50 Sodium Chloride (Saline Flush) 10 ml FLUSH ONETIME ONE Stop: 06/19/19 05:56 Last Admin: 06/19/19 06:29 Dose: 10 ml Succinylcholine Chloride (Quelicin) Confirm Administered Dose 200 mg .ROUTE .STK -MED ONE Stop: 06/19/19 08:50 Tamsulosin HCl (Flomax) 0.4 mg PO DAILY [facility] Valacyclovir HCl (Valtrex) 1,000 mg PO TID [facility] - Exam Quality Assessment: No: Supplemental Oxygen General: Alert, Oriented, Cooperative, No Acute Distress Lungs: Normal Respiratory Effort Cardiovascular: Regular Rate, Regular Rhythm GI/Abdominal Exam: Soft, No Distention Extremities: Pedal Edema (trace bilateral ankle edema) Skin: Warm, Dry Psy/Mental Status: Alert, Normal Affect - Problem List Review Problem List Initiated/Reviewed/Updated: Yes - My Orders Last 24 Hours: My Active Orders 06/21/19 11:48 Discontinue Telemetry Monitoring [Cardiac Monitoring Discontinue] [RC] Click to Edit oxyCODONE 5 mg PO Q4H PRN 06/21/19 11:49 Convert IV to Saline Lock [OM.PC] Routine - Plan Plan:: ASSESSMENT AND PLAN - 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 -Continue Valtrex -Restart steroids tomorrow Essential hypertension - blood pressure control acceptable. -Continue lisinopril Maintenance issues - - DVT prophylaxis - mechanical - GI prophylaxis - PPI - Nutrition - regular diet today Disposition - I would anticipate discharge home after the hospital stay, likely tomorrow if stable overnight Tomasz Phillips M.D.
[2019-06-22] MEDS ORDERED: Furosemide 20 MG/2 ML VIAL IVPUSH ONE (11:30)
[2019-06-22] MEDS: Ondansetron 4 MG/2 ML SDV IV PRN (20:04)
[2019-06-22] MEDS: atorvaSTATin 20 MG Tab PO SCH (21:24)
[2019-06-23] MEDS: Ibuprofen 600 MG Tab PO SCH ×2 (00:14→04:46)
[2019-06-23] MEDS: Acetaminophen 500 MG Tab PO SCH ×2 (02:57→09:45)
[2019-06-23] MEDS: Ondansetron 4 MG/2 ML SDV IV PRN ×2 (03:00→15:36)
[2019-06-23] MEDS: traMADol 50 MG Tab PO SCH ×4 (03:02→21:55)
[2019-06-23] MEDS: Loratadine 10 MG Tab PO SCH (08:25)
[2019-06-23] MEDS: valACYclovir 1,000 MG Tab PO SCH ×3 (08:26→21:36)
[2019-06-23] MEDS: Tamsulosin 0.4 MG Cap.ER PO SCH (08:26)
[2019-06-23] MEDS: Allopurinol 300 MG Tab PO SCH (08:26)
[2019-06-23] MEDS: Fluticasone Propionate Nasal Spray 16 GM Bottle NASBOTH SCH (08:26)
[2019-06-23] MEDS: Aspirin 81 MG Tab.EC PO SCH (08:26)
[2019-06-23] MEDS: Finasteride 5 MG Tab PO SCH (08:26)
[2019-06-23] MEDS ORDERED: Ibuprofen 600 MG Tab PO PRN (09:00)
[2019-06-23] MEDS ORDERED: Acetaminophen 500 MG Tab PO PRN (09:00)
[2019-06-23] MEDS: Metoclopramide 10 MG/2 ML SDV IVPUSH SCH ×3 (09:16→21:36)
[2019-06-23] MEDS: D5 1/2 NS w/ 20 mEq/L KCl 1,000 ML IV SCH ×2 (09:44→21:49)
[2019-06-23] MEDS: Sennosides 8.6 MG Tab PO SCH ×3 (09:46→21:36)
[2019-06-23] MEDS: predniSONE 20 MG Tab PO SCH (09:46)
[2019-06-23] MEDS: Levothyroxine 112 MCG Tab PO SCH (09:46)
[2019-06-23] MEDS: Lisinopril 10 MG Tab PO SCH (09:46)
[2019-06-23] MEDS: atorvaSTATin 20 MG Tab PO SCH (21:36)
[2019-06-24] MEDS: Metoclopramide 10 MG/2 ML SDV IVPUSH SCH ×2 (03:45→09:42)
[2019-06-24] MEDS: traMADol 50 MG Tab PO SCH ×3 (04:45→09:06)
--- NOTE | 2019-06-24 05:34 | CRLCR ---
Indication: Ileus Technique: Abdomen 2 view. Comparison: June 19, 2019 Findings/impression: Air-filled, mildly dilated loops of small bowel. Air-filled but nondilated loops of colon. Mild gaseous distention of the stomach. These findings suggest ileus. Midline laparotomy skin alyse noted. Anastomotic suture seen in the mid abdomen. No acute osseous abnormality. Dictated by Susan Craig MD @ Jun 24 2019 5:30AM Signed by Dr. Susan Craig @ Jun 24 2019 5:32AM
[2019-06-24 07:29] VITALS: BP 148/70; PULSE 81
[2019-06-24] MEDS: Sennosides 8.6 MG Tab PO SCH (08:20)
[2019-06-24] MEDS: Allopurinol 300 MG Tab PO SCH (08:20)
[2019-06-24] MEDS: Loratadine 10 MG Tab PO SCH (08:20)
[2019-06-24] MEDS: Fluticasone Propionate Nasal Spray 16 GM Bottle NASBOTH SCH (08:20)
[2019-06-24] MEDS: Aspirin 81 MG Tab.EC PO SCH (08:20)
[2019-06-24] MEDS: predniSONE 20 MG Tab PO SCH (08:23)
[2019-06-24] MEDS: valACYclovir 1,000 MG Tab PO SCH (08:23)
[2019-06-24] MEDS: Tamsulosin 0.4 MG Cap.ER PO SCH (08:23)
[2019-06-24] MEDS: Lisinopril 10 MG Tab PO SCH (08:24)
[2019-06-24] MEDS: Levothyroxine 112 MCG Tab PO SCH (08:24)
[2019-06-24] MEDS: Finasteride 5 MG Tab PO SCH (08:27)
--- NOTE | 2019-06-24 10:30 | DISCH ---
FINAL DIAGNOSES: 1. 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 2. Nodule on surface of left lobe of the liver. 3. Incarcerated umbilical hernia. OPERATIVE PROCEDURE: 1. Exploratory laparotomy with;. a. Right colectomy. b. Wedge biopsy of left lobe of the liver. c. Repair of incarcerated umbilical hernia, done on 06/19/2019. 2. On 06/21/2019, delayed primary closure of abdominal incision. OTHER DIAGNOSES: 1. Benign prostatic hyperplasia. 2. History of hypertension. 3. History of hyperlipidemia. 4. Treated hypothyroidism. 5. History of psoriasis. 6. History of atrial fibrillation with rapid ventricular response. 7. History of gout. HOSPITAL COURSE: This is a 73-year-old male, presenting with increasing abdominal pain. He was noted to have onset of atrial fibrillation with rapid ventricular response and was admitted to the intensive care unit and underwent a Cardizem drip. This did convert. Abdominal CT scan showed a markedly dilated appendix, and the patient after hemodynamic stabilization was taken to the operating room. He was noted to have a mass of the distended appendix, but no perforation of that, and we elected to proceed directly to the right colectomy. Pathology report is pending on this. He did have one nodule on the anterior aspect of the left lobe of the liver which was excised. This would probably be benign. Pathology on this is also pending. He had an incarcerated umbilical hernia which was repaired concurrently. The patient had a delayed primary closure on postop day #2. He had little slow recovery of bowel function but now is moving bowels and eating satisfactorily. He will be discharged home. Follow up with Dr. Rosales at [facility] on 06/27/2019. Antibiotics will include his usual medications plus Dilaudid 2 mg q.3 hours p.r.n. pain #30 along with Tylenol and/or ibuprofen as needed for pain. The patient postoperatively did not have any recurrence of the atrial arrhythmias. I suspect this was caused by the semi-acute abdominal presentation.
--- NOTE | 2019-06-25 07:42 | PN ---
DATE OF SERVICE: 06/23/2019 The patient has been afebrile with stable vital signs. Did have some emesis overnight, as well as early this morning. This appeared to be relatively low volume, but he is still having a little bit of nausea. Given this, we will back down to more of a full liquid diet and do not push it until his nausea appears to be clearing. We will add some Reglan IV today and restart more of a maintenance IV and check some abdominal x-rays tomorrow. Path report is still pending. Yuri Rosales MD /[id number]
[2019-06-26 23:07] LABS: IGG P18 AB. Absent (.); IGG P23 AB. Present (.); IGG P28 AB. Absent (.); IGG P30 AB. Absent (.); IGG P39 AB. Absent (.); IGG P41 AB. Present (.); IGG P45 AB. Absent (.); IGG P58 AB. Absent (.); IGG P66 AB. Absent (.); IGG P93 AB. Absent (.); IGM P23 AB. Present (.); IGM P39 AB. Present (.); IGM P41 AB. Present (.); LYME IGG WB INTERP. Negative (.); LYME IGG/IGM AB 2.75 ISR (0.00-0.90); LYME IGM WB INTERP. Positive (.)
--- NOTE | 2019-06-27 10:00 | OR ---
DATE OF PROCEDURE: 06/21/2019 PREOPERATIVE DIAGNOSIS: Open abdominal incision. POSTOPERATIVE DIAGNOSIS: Open abdominal incision. OPERATIVE PROCEDURE: Delayed primary closure of open abdominal incision. ANESTHESIA: Local plus IV sedation. INDICATIONS FOR PROCEDURE: The patient is 48 hours status post an open laparotomy where he had a complicated appendiceal lesion requiring a right colectomy. At the time of the procedure, it was felt that the patient would be high risk for a wound infection if primary closure was undertaken and therefore the wound was packed open for a planned delayed primary closure at this time. Potential risks including bleeding and infection were reviewed, and the patient wishes to proceed. DETAILS OF PROCEDURE: The patient was taken to the operating room and placed in a supine position. After IV sedation was administered using ultrasound guidance, bilateral transversus abdominis plane blocks were placed and the dressing was then taken down. Wound was inspected and found to be clean, and this was then prepped and draped, anesthetized with 1% lidocaine mixed with Marcaine and irrigated with meropenem-containing saline solution. Deeper soft tissue was then approximated with some 3-0 Vicryl stitch deep and a 4-0 Vicryl subdermal stitch followed by skin alyse. Dressing was applied. The patient was taken to the recovery room in satisfactory condition. There were no other complications. Yuri Rosales MD /[id number]
--- NOTE | 2019-06-27 12:51 | OR ---
DATE OF PROCEDURE: 06/19/2019 PREOPERATIVE DIAGNOSIS: Acute abdominal pain associated with marked distention of the appendix. POSTOPERATIVE DIAGNOSES: 1. 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 2. Nodule on surface of left lobe of liver. 3. Incarcerated umbilical hernia. OPERATIVE PROCEDURES: Exploratory laparotomy with: 1. Right colectomy (23801). 2. Wedge biopsy of left lobe of liver (11748). 3. Repair of incarcerated umbilical hernia (64156). ANESTHESIA: General. INDICATION FOR PROCEDURE: This is a 73-year-old presenting with a picture of acute abdominal pain with elevated white count. A CT scan was obtained which shows a strikingly distended appendix which is both up to around 7 cm in diameter in terms of transverse size and 9 cm longer than normal. Apart than that, there is no evidence of obvious tumor. He does have evidence of constipation on CT scan, but otherwise no additional abnormalities were noted. Plan is to proceed with exploratory laparotomy. The appendix will need to be removed without any entrance into the appendiceal lumen if at all possible, and if the above findings are confirmed, we will probably proceed directly to right colectomy so as to avoid any likelihood of entering the appendiceal lumen or transecting across the areas that might lead to peritoneal seeding of the probable mucinous tumor. Potential risks of the procedure per se including bleeding, infection, possible rupture of the mass resulting in subsequent peritoneal carcinomatosis as well as possibility of cardiopulmonary, septic, or hemorrhagic complications leading to were discussed, and the patient wishes to proceed. DETAILS OF PROCEDURE: The patient was taken to the operating room, and after general endotracheal anesthesia was induced, a Mcfarlane catheter was inserted and the abdomen prepped and draped. A midline incision, which eventually extended from roughly a handsbreadth below the xiphoid to a handsbreadth below the umbilicus was made and carried down through the skin, subcutaneous tissue, fascia, and into the peritoneal cavity. Upon entering the peritoneal cavity, the patient was noted to have an incarcerated umbilical hernia which contained some omentum within it. This was reduced, and the hernial sac excised and sent as a separate specimen. As expected, the patient had a very large, essentially a hot dog-sized appendix, which was tensely distended. There was, however, fortunately no obvious perforation, and there was no evidence of any peritoneal carcinomatosis or extraluminal mucin present. The patient had one small white nodule in the mid aspect of the left lobe of the liver. This was initially excised with linings of wedge resection and sent for histologic evaluation, and hemostasis was obtained with electrocautery. At this point, the decision was made to proceed directly to a right colectomy as even transection across the appendiceal base or adjacent cecal body would potentially result in some peritoneal contamination with tumor cells, and with this being highly likely to be a mucin-producing carcinoma of the appendix or appendiceal-cecal junction area, the correct operation would be a right colectomy to include viv sampling as part of the staging. At this point, the peritoneal reflection of the distal small bowel, cecum, and ascending colon was divided. This allowed medial mobilization of those structures, particularly to avoid injury to underlying right ureter and duodenum. Once this was accomplished, the distal small bowel was divided with a ZEENAT stapler. This was done a little more proximal than typical to have a wide vascular and lymphatic resection of the ileocolic chain of nodes. These were slightly enlarged, but not hard, and I suspect they are inflammatory in nature rather than containing metastatic disease. The mid transverse colon to the right of the middle colic vessels was then similarly divided with a ZEENAT stapler, some omental attachments to that were divided, and the hepatic flexure likewise mobilized medially away from the retroperitoneal attachments. At this point, the mesentry was divided with a sequence of ZEENAT alyse. Care was taken to divide the ileocolic chain essentially at its origin off the terminal aspect of the superior mesenteric artery and vein, and remainder of the mesentery was then divided as well and the specimen delivered from the field. Off the field, the specimen was entered. 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 After new gloves and gowns were obtained, attention was taken to the ileocolic anastomosis which was accomplished with 2 internal firings of the ZEENAT 60 mm stapler. Common opening was then closed transversely with the same stapler and the angles anastomosed and mesenteric defect approximated with some 3-0 Vicryl stitch. At this point, no further problems were noted. The abdomen was irrigated with antibiotic-containing saline solution. A Harley- Yanes drain was then placed through a stab wound in the right upper quadrant and taken across the area of the anastomosis from the abdominal wall and the pericolic gutter area and into the pelvis. The patient had satisfactory omentum to pass across the area of the incision, which was then closed at the fascial level with #2 Vicryl stitch. This included repair of the umbilical hernia, and the skin and subcutaneous tissue were felt to be high risk for wound infection. So, primary closure was accomplished. This was packed open for a planned delayed primary closure in 48 hours. The patient was taken to the recovery room in satisfactory condition. There were no evident complications. Yuri Rosales MD /[id number]
== END 2019-06-24 11:19 | disposition home or self-care (01) | DRG 330 ==
LOC: JP.ED 02:27 → JP.ICU 05:46 → JP.MS 06-20 18:00
PROVIDERS: ADMIT Family Medicine; ATTEND Internal Medicine
PROC: 0DTF0ZZ Resection of Right Large Intestine, Open Approach (ICD-10-PCS; principal; 2019-06-19)
PROC: 0FB20ZX Excision of Left Lobe Liver, Open Approach, Diagnostic (ICD-10-PCS; 2019-06-19)
PROC: 0WQFXZZ Repair Abdominal Wall, External Approach (ICD-10-PCS; 2019-06-19)
PROC: 0WQF0ZZ Repair Abdominal Wall, Open Approach (ICD-10-PCS; 2019-06-21)
DX: C18.1 Malignant neoplasm of appendix (principal); K59.00 Constipation, unspecified; D72.829 Elevated white blood cell count, unspecified; K42.0 Umbilical hernia with obstruction, without gangrene; K76.9 Liver disease, unspecified; E78.00 Pure hypercholesterolemia, unspecified; I48.91 Unspecified atrial fibrillation; G51.0 Bell's palsy; H54.7 Unspecified visual loss; E78.5 Hyperlipidemia, unspecified; I10 Essential (primary) hypertension; K21.9 Gastro-esophageal reflux disease without esophagitis; Z87.442 Personal history of urinary calculi; E03.9 Hypothyroidism, unspecified; M10.9 Gout, unspecified; E66.9 Obesity, unspecified; M54.9 Dorsalgia, unspecified; J02.9 Acute pharyngitis, unspecified; L40.9 Psoriasis, unspecified; N40.0 Benign prostatic hyperplasia without lower urinary tract symptoms; Z88.1 Allergy status to other antibiotic agents; Z79.82 Long term (current) use of aspirin; Z79.890 Hormone replacement therapy; Z79.899 Other long term (current) drug therapy
CPT/HCPCS: 36415; 71045; 74019; 80048; 81001; 83880; 84443; 84484; 85025; 85379; 85610; 93005; 93010; 96361; 96374; 96375; 99285 ×2; J2405; J3490 ×2; J7030 ×2; 74177; 80053; 83605; 83735; 84100; 85027; 85730; 86140; 86617-59; 86618; 87040; 88302; 88307; 88309; 93306; 94667; A9270-GY; C9113; J0171; J0330; J0696; J1100; J1170; J1644; J1940; J2185; J2270; J2704; J2710; J2765; J2795; J3010; J3475; J3480; J7042; J7050; J7120

== ENCOUNTER 2019-10-16 08:55 | Day surgery (SDC) | payer MEDICARE, BC ==
[2019-10-16] MEDS ORDERED: Dextrose 5%-Lactated Ringers 1,000 ML IV SCH (10:00)
[2019-10-16] MEDS ORDERED: fentaNYL 100 MCG/2 ML SDV ONE (10:01)
[2019-10-16] MEDS ORDERED: Propofol 200 MG/20 ML SDV ONE (10:01)
[2019-10-16] MEDS ORDERED: Midazolam 1 MG/ML 2 ML SDV ONE (10:01)
[2019-10-16 13:47] VITALS: BP 136/77; PULSE 70
--- NOTE | 2019-10-24 15:35 | OR ---
DATE OF PROCEDURE: 10/16/2019 SURGEON: Yuri Rosales MD PREOPERATIVE DIAGNOSIS: Status post right colectomy for appendiceal carcinoma. POSTOPERATIVE DIAGNOSES: 1. Status post right colectomy for appendiceal carcinoma. 2. Polypoid area on the ileocolic anastomosis. 3. Possible very low rectal polyp versus hemorrhoidal tissue. PROCEDURE PERFORMED: Flexible colonoscopy with: 1. Biopsy of the polypoid tissue at the ileocolic anastomosis. 2. Removal of possible rectal polyp versus hemorrhoidal tissue by snare technique. ANESTHESIA: IV sedation. INDICATION FOR PROCEDURE: This is a 73-year-old, status post a right colectomy for an appendiceal carcinoma this past June to rule out any additional colonic pathology as well as possible anastomotic recurrences. The patient is to undergo flexible colonoscopy with biopsies and/or polypectomy as indicated. Potential risks including bleeding and perforation were discussed, and the patient wishes to proceed. DETAILS OF PROCEDURE: The patient was taken to the operating room, placed in the left lateral decubitus position. IV sedation was administered, after which the initial digital rectal exam was performed. It was unremarkable. Colonoscope was then passed to the level of the rectum and retroflexion revealed a small area of polypoid-type tissue. This appeared to be most likely adenomatous polyp with a sinus texture. The scope was then eventually passed through the ileal and transverse colon anastomotic site granulation tissue over some exposed alyse to rule out this being a local malignant recurrence. These areas were biopsied. Minimal bleeding from the biopsy site was seen. Scope was then withdrawn. No additional abnormalities were noted. The little polypoid-type tissue just above the anal opening was then encircled with the snare and removed by cautery snare and sent for histologic evaluation. Assuming both of these processes are benign, the patient should likely have a repeat colonoscopy in roughly 1 year. Yuri Rosales MD /[id number]
== END 2019-10-16 13:55 | disposition home or self-care (01) ==
LOC: JP.SDS 08:55
PROVIDERS: ATTEND Surgery
DX: Z12.11 Encounter for screening for malignant neoplasm of colon (principal); K63.5 Polyp of colon; K62.1 Rectal polyp; K52.9 Noninfective gastroenteritis and colitis, unspecified; E03.9 Hypothyroidism, unspecified; E78.00 Pure hypercholesterolemia, unspecified; Z90.49 Acquired absence of other specified parts of digestive tract
CPT/HCPCS: 45380; 45385; 88305; 88342; J2250; J2704; J3010; J7121

== ENCOUNTER 2020-10-21 06:07 | Day surgery (SDC) | payer MEDICARE, BC ==
[~2020-10-21 06:07] MED LIST: Lidocaine 1% 2 ML ONE
[2020-10-21] MEDS ORDERED: Sodium Chloride 0.9% 1,000 ML IV SCH (07:00)
[2020-10-21] MEDS ORDERED: fentaNYL 100 MCG/2 ML SDV ONE (07:17)
[2020-10-21] MEDS ORDERED: Propofol 200 MG/20 ML SDV ONE (07:17)
[2020-10-21] MEDS ORDERED: Midazolam 1 MG/ML 2 ML SDV ONE (07:17)
[2020-10-21 10:01] VITALS: BP 125/73; PULSE 76
--- NOTE | 2020-10-21 16:17 | OR ---
DATE OF PROCEDURE: 10/21/2020 SURGEON: Beka Kumari MD PROCEDURE: Colonoscopy. FINDINGS: Multiple rectal/anal tags, approximately 3 to 4, one being more prominent, which was biopsied using cold biopsy forceps. COMPLICATIONS: None. 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 PREOPERATIVE DIAGNOSIS: History of colorectal cancer/appendiceal. POSTOPERATIVE DIAGNOSIS: History of colorectal cancer/appendiceal. PROCEDURE IN DETAIL: The patient was placed in the left lateral decubitus position. Digital rectal exam was performed without abnormality. The scope was introduced and advanced atraumatically to the anastomosis. There was no evidence of recurrence of malignancy. Normal mucosal architecture. Anastomosis was viable, large, and without abnormality. The scope was brought back to the remainder of the colon. No abnormalities were noted. No old or new blood. On retroflexion, the patient had approximately 3 hemorrhoidal tags, 1 had a slight pedunculated architecture to it. This was biopsied multiple times using cold biopsy forceps. No old or new blood. The patient had 3 to 4 diverticula noted in the sigmoid colon. Greater than 8 minutes spent removing the scope. The patient tolerated the procedure well. Beka Kumrai MD /[id number]
== END 2020-10-21 09:00 | disposition home or self-care (01) ==
LOC: JP.SDS 06:07
PROVIDERS: ATTEND Surgery
DX: D12.8 Benign neoplasm of rectum (principal); K57.30 Diverticulosis of large intestine without perforation or abscess without bleeding; K64.9 Unspecified hemorrhoids; I10 Essential (primary) hypertension; E78.5 Hyperlipidemia, unspecified; Z88.0 Allergy status to penicillin; Z85.048 Personal history of other malignant neoplasm of rectum, rectosigmoid junction, and anus; Z98.0 Intestinal bypass and anastomosis status
CPT/HCPCS: 45380; 88305; J2001; J2250; J2704; J3010; J7030